=== PATIENT | female | born 1945 | race Caucasian/White ===

== ENCOUNTER 2018-10-22 11:03 | Observation (INO) ==
[2018-10-22] MEDS ORDERED: NORMODYNE INJ 20 MG VIAL IVP ONE (11:22)
[2018-10-22 11:29] LABS: BASOPHILS # (AUTO) 0.1 X10^3/uL (0.0-0.1); BASOPHILS % (AUTO) 1.2 % (0.2-1.0); EOSINOPHILS # (AUTO) 0.1 x10^3/uL (0.0-0.2); EOSINOPHILS % (AUTO) 2.5 % (0.9-2.9); HEMATOCRIT 39.3 % (36.0-47.0); HEMOGLOBIN 13.4 g/dL (12.0-16.0); LYMPHOCYTES # (AUTO) 1.4 X10^3/uL (1.3-2.9); LYMPHOCYTES % (AUTO) 22.9 % (21.0-51.0); MEAN CORPUSCULAR HEMOGLOBIN 31.7 pg (27.0-34.0); MEAN CORPUSCULAR HGB CONC 34.2 g/dL (33.0-35.0); MEAN CORPUSCULAR VOLUME 92.8 fL (80.0-100.0); MEAN PLATELET VOLUME 6.6 fL (7.4-11.0); MONOCYTES # (AUTO) 0.6 x10^3/uL (0.3-0.8); MONOCYTES % (AUTO) 9.9 % (0.0-13.0); NEUTROPHILS # (AUTO) 3.8 x10^3/uL (2.2-4.8); NEUTROPHILS % (AUTO) 63.5 % (42.0-75.0); PLATELET COUNT 281 X10^3/uL (150.0-450.0); RED BLOOD COUNT 4.23 X10^6/uL (3.5-5.4); RED CELL DISTRIBUTION WIDTH 14.9 % (11.6-16.5); WHITE BLOOD COUNT 5.9 X10^3/uL (3.6-10.0)
--- NOTE | 2018-10-22 12:04 | DR.GENAD ---
HPI Time Seen Time Seen by Provider: 10/22/18 11:18 PCP Primary Care Physician: URSULA HPI Comment HPI Comment: PATIENT IS 72YR OLD WHITE FEMALE WITH HISTORY OF HYPERTENSION, COPD AND ARTHRTIS IS IN THE EMERGENCY ROOM WITH AMS, DIZZINESS, HEADACHE AND SLURRED SPEECH. HER DAUGHTER SAID SHE CONFUSED WHEN SHE SAW HER THIS MORNING AND HER SPEECH SLURRED. PATIENT TOOK HER MEDICATIONS THIS AM INCLUDING HER MEDICATION FOR HYPERTENSION. Complaint/Symptoms Chief Complaint Doctors Comments: AMS, HEADACHE, DIZZINESS AND SLURRED SPEECH THIS AM. Chief Complaint:: PT. C/O HEADACHE, DIZZINESS AND HIGH BLOOD PRESSURE. Source History Provided: Patient and Family Member Mode of Arrival Mode of Arrival: Wheelchair Timing Onset of Chief Complaint: 10/22/18 PMH PMH Past Medical History: Yes Past Medical History: Arthritis, COPD and Hypertension Past Surgical History: No Surgical History: No History Family History History of Family Medical Conditions: Yes Family Medical History: Hypertension Social History Does patient currently use any type of tobacco product: Yes Have you used tobacco products in the last 12 months: Yes Type of Tobacco Use: Cigarettes Does any household member use tobacco: No Alcohol Use: None Do you use any recreational Drugs:: No Lives With: Alone Lives Where: Home infectious screening In the last 2 months have you had wt loss of >10#?: NO Have you had fever, night sweats or hemotysis?: No Have you traveled outside the country in the last 6 months?: No Isolation: Standard PE Vital Signs Vitals: Temperature 97.4 F Pulse Rate [Apical] 83 Pulse Rate 72 Respiratory Rate 20 Blood Pressure [Left Arm] 165/80 Blood Pressure 217/106 O2 Sat by Pulse Oximetry 98 ROR Labs Reviewed Result Diagrams: 10/22/18 11:14 10/22/18 11:14 Laboratory: WBC 5.9 X10^3/uL (3.6-10.0) 10/22/18 11:14 RBC 4.23 X10^6/uL (3.5-5.4) 10/22/18 11:14 Hgb 13.4 g/dL (12.0-16.0) 10/22/18 11:14 Hct 39.3 % (36.0-47.0) 10/22/18 11:14 MCV 92.8 fL (80.0-100.0) 10/22/18 11:14 MCH 31.7 pg (27.0-34.0) 10/22/18 11:14 MCHC 34.2 g/dL (33.0-35.0) 10/22/18 11:14 RDW 14.9 % (11.6-16.5) 10/22/18 11:14 Plt Count 281 X10^3/uL (150.0-450.0) 10/22/18 11:14 MPV 6.6 fL (7.4-11.0) L 10/22/18 11:14 Neut % (Auto) 63.5 % (42.0-75.0) 10/22/18 11:14 Lymph % (Auto) 22.9 % (21.0-51.0) 10/22/18 11:14 [place] % (Auto) 9.9 % (0.0-13.0) 10/22/18 11:14 Eos % (Auto) 2.5 % (0.9-2.9) 10/22/18 11:14 Baso % (Auto) 1.2 % (0.2-1.0) H 10/22/18 11:14 Neut # (Auto) 3.8 x10^3/uL (2.2-4.8) 10/22/18 11:14 Lymph # (Auto) 1.4 X10^3/uL (1.3-2.9) 10/22/18 11:14 [place] # (Auto) 0.6 x10^3/uL (0.3-0.8) 10/22/18 11:14 Eos # (Auto) 0.1 x10^3/uL (0.0-0.2) 10/22/18 11:14 Baso # (Auto) 0.1 X10^3/uL (0.0-0.1) 10/22/18 11:14 Absolute Nucleated RBC 0.1 /100WBC 10/22/18 11:14 Sodium 139 mmol/L (136-145) 10/22/18 11:14 Corrected Sodium 140 mmol/L (136-145) 10/22/18 11:14 Potassium 2.9 mmol/L (3.5-5.1) L* 10/22/18 11:14 Chloride 98 mmol/L (98-107) 10/22/18 11:14 Carbon Dioxide 33.8 mmol/L (21-32) H 10/22/18 11:14 BUN 15 mg/dL (7-18) 10/22/18 11:14 Creatinine 1.12 mg/dL (0.55-1.02) H 10/22/18 11:14 Est GFR (MDRD) Af Amer > 60 (>60) 10/22/18 11:14 Est GFR (MDRD) Non-Af 51 (>60) L 10/22/18 11:14 Glucose 129 mg/dL (65-99) H 10/22/18 11:14 Calcium 9.6 mg/dL (8.5-10.1) 10/22/18 11:14 Corrected Calcium TNP 10/22/18 11:14 Total Bilirubin 0.60 mg/dL (0.2-1.0) 10/22/18 11:14 AST 25 Units/L (15-37) 10/22/18 11:14 ALT 24 Units/L (12-78) 10/22/18 11:14 Alkaline Phosphatase 57 Units/L (46-116) 10/22/18 11:14 Creatine Kinase 142 Units/L (26-192) 10/22/18 11:14 CK-MB (CK-2) 9.6 ng/mL (0-4.0) H* 10/22/18 11:14 CK/CKMB % Calc 6.8 % (<4) 10/22/18 11:14 Troponin I < 0.02 ng/mL (0-1.5) 10/22/18 11:14 Total Protein 7.8 g/dL (6.4-8.2) 10/22/18 11:14 Albumin 3.8 g/dL (3.4-5.0) 10/22/18 11:14 Globulin 4.0 g/dL (2.5-4.5) 10/22/18 11:14 Albumin/Globulin Ratio 1.0 Ratio (1.1-2.1) L 10/22/18 11:14 Specimen Type Clean catch urine 10/22/18 12:22 Urine Color Yellow (YELLOW) 10/22/18 12:22 Urine Appearance Clear (CLEAR) 10/22/18 12:22 Urine pH 8.0 (5.0 - 8.0) 10/22/18 12:22 Ur Specific [place] 1.010 (1.000-1.030) 10/22/18 12:22 Urine Protein Negative (NEGATIVE) 10/22/18 12:22 Urine Glucose (UA) Negative (NEGATIVE) 10/22/18 12:22 Urine Ketones Negative (NEGATIVE) 10/22/18 12:22 Urine Occult Blood Negative (NEGATIVE) 10/22/18 12:22 Urine Nitrite Negative (NEGATIVE) 10/22/18 12:22 Urine Bilirubin Negative (NEGATIVE) 10/22/18 12:22 Urine Urobilinogen Normal (NORMAL) 10/22/18 12:22 Ur Leukocyte Esterase Negative (NEGATIVE) 10/22/18 12:22 Urine RBC Not Reportable 10/22/18 12:22 Urine WBC Not Reportable 10/22/18 12:22 Ur Squamous Epith Cells Not Reportable 10/22/18 12:22 Urine Bacteria Not Reportable 10/22/18 12:22 Ur Culture Indicated? No/not indicated 10/22/18 12:22 Opioid Opioid Risk Tool Total: 0 Total Score Risk Category: Low Risk Copyright: Satish ESTEVEZ predicting aberrant behaviors
[2018-10-22 12:06] LABS: ALANINE AMINOTRANSFERASE 24 Units/L (12-78); ALBUMIN 3.8 g/dL (3.4-5.0); ALKALINE PHOSPHATASE 57 Units/L (46-116); ASPARTATE AMINO TRANSFERASE 25 Units/L (15-37); BLOOD UREA NITROGEN 15 mg/dL (7-18); CALCIUM 9.6 mg/dL (8.5-10.1); CARBON DIOXIDE 33.8 mmol/L (21-32); CHLORIDE 98 mmol/L (98-107); CKMB % 6.8 % (<4); COR NA(FOR HYPERGLY) 140 mmol/L (136-145); CREATINE KINASE 142 Units/L (26-192); CREATININE 1.12 mg/dL (0.55-1.02); SODIUM 139 mmol/L (136-145); TOTAL PROTEIN 7.8 g/dL (6.4-8.2); TROPONIN I < 0.02 ng/mL (0-1.5); eGFR NON BLACK RACES 51 (>60)
[2018-10-22 12:10] LABS: CREATINE KINASE MB 9.6 ng/mL (0-4.0)
[2018-10-22] MEDS ORDERED: K-LYTE EFFERVESCENT PO ONE (12:18)
--- NOTE | 2018-10-22 12:21 | RAD ---
HISTORY: Headache, dizziness, high blood pressure. Prior history of hypertension and COPD. Study: Single-view chest Comparison: No priors Findings: Trachea is midline. Heart size is normal. There is atherosclerotic calcification and mild uncoiling of the aortic arch. There is hyperinflation of the lungs with increased interstitial markings bilaterally. There is some scarring present involving the right lung base. No dense consolidation, CHF, pleural fluid or pneumothorax is seen. There is multilevel thoracic spondylosis. IMPRESSION: COPD and scarring. No acute cardiopulmonary disease. Reported By:
--- NOTE | 2018-10-22 12:27 | CT ---
CT HEAD WITHOUT CONTRAST CLINICAL HISTORY: 72-year-old female with headache, dizziness. COMPARISON: None. TECHNIQUE: Multiple, non-contrasted axial CT images were obtained from the skull base to the cranial vertex. Coronal and sagittal reformats were performed. Dose reduction techniques including Automated Exposure Control (AEC) and adjustment of mA and kV were utilized. FINDINGS: There are no abnormal intra- or extra-axial fluid collections, midline shift, or mass effect. Aguirre-white differentiation is normal. Global cortical involutional changes are present that are advanced for the patient's stated age. The ventricular system is mildly enlarged but commensurate with the degree of sulcal prominence. Chronic lacunar infarctions bilateral basal ganglia. Periventricular and supraventricular white matter hypodensity is present that is nonspecific in appearance, but most likely to represent microvascular ischemic changes. Atherosclerotic vascular calcification is present within the carotid siphons and distal vertebral arteries. Mucosal thickening with central inspissated secretions of the imaged left maxillary sinus with the remaining imaged paranasal sinuses, mastoid air cells and tympanic cavities clear. IMPRESSION: 1. No definite evidence of an acute intracranial process. If clinical concern persists for acute stroke and it would alter patient management, consider MRI/MRA brain. 2. Chronic lacunar infarctions bilateral basal ganglia. 3. Moderate microvascular white matter ischemic changes, with associated volume loss. 4. Chronic left maxillary sinusitis. Reported By:
[2018-10-22] MEDS ORDERED: K-LYTE EFFERVESCENT ONE (12:42)
[2018-10-22 12:50] LABS: BILIRUBIN,URINE NEGATIVE (NEGATIVE); BLOOD/HEMOGLOBIN,URINE NEGATIVE (NEGATIVE); GLUCOSE, URINE NEGATIVE (NEGATIVE); KETONES,URINE NEGATIVE (NEGATIVE); LEUKOCYTE ESTERASE ,URINE NEGATIVE (NEGATIVE); NITRITES,URINE NEGATIVE (NEGATIVE); PROTEIN,URINE NEGATIVE (NEGATIVE); UROBILINOGEN,URINE NORMAL (NORMAL)
[2018-10-22 12:52] LABS: APPEARANCE,URINE CLEAR (CLEAR); COLOR,URINE YELLOW (YELLOW)
[2018-10-22] MEDS ORDERED: CATAPRES TAB 0.2 MG PO ONE (12:53)
[2018-10-22] MEDS ORDERED: TORADOL 30 MG VIAL IVP ONE (12:53)
[2018-10-22] MEDS ORDERED: TORADOL 15 MG VIAL ONE (13:02)
[2018-10-22] MEDS ORDERED: CATAPRES TAB 0.2 MG ONE (13:02)
[2018-10-22 16:47] VITALS: BMI 12.4
[2018-10-22] MEDS: NS 1000 ML 1,000 ML IV SCH (17:40)
[2018-10-22 17:48] LABS: CKMB % 4.4 % (<4); CREATINE KINASE 147 Units/L (26-192); TROPONIN I < 0.02 ng/mL (0-1.5)
[2018-10-22 17:50] LABS: CREATINE KINASE MB 6.5 ng/mL (0-4.0)
[2018-10-22] MEDS: DUONEB 0.5 MG/3 MG NEB SCH ×2 (17:50→20:06)
[2018-10-22 18:08] LABS: MAGNESIUM 1.9 mg/dL (1.7-2.9)
[2018-10-22] MEDS: NORCO 5/325 MG TAB PO PRN (19:11)
[2018-10-22] MEDS: ROCEPHIN VIAL 1 GRAM IVP SCH (19:11)
[2018-10-22] MEDS: BROVANA IN SCH (20:01)
[2018-10-22] MEDS: PULMICORT NEB TX 0.5 MG NEB SCH (20:06)
[2018-10-22] MEDS: MILK OF MAGNESIA PO SCH (20:36)
[2018-10-22] MEDS: BUSPAR PO SCH (20:36)
[2018-10-22] MEDS: MONOKET or IMDUR PO SCH (20:38)
[2018-10-22] MEDS: ELAVIL PO SCH (20:38)
[2018-10-22] MEDS: COLACE CAP 100 MG PO SCH (20:38)
[2018-10-22] MEDS ORDERED: BROVANA IN SCH (21:00)
[2018-10-22] MEDS: XANAX PO PRN (22:02)
[2018-10-22 23:11] LABS: ABG BASE EXCESS 14.9 mmol/L (-2.0-2.0)
[2018-10-22 23:13] LABS: ABG ALLEN TEST POS; ABG HCO3 38.5 mmol/L (22-26)
[2018-10-22 23:54] LABS: CKMB % 4.9 % (<4); CREATINE KINASE 87 Units/L (26-192); TROPONIN I < 0.02 ng/mL (0-1.5)
[2018-10-22 23:56] LABS: CREATINE KINASE MB 4.3 ng/mL (0-4.0)
[2018-10-23] MEDS: NORCO 5/325 MG TAB PO PRN ×4 (02:04→19:50)
[2018-10-23] MEDS: NS 1000 ML 1,000 ML IV SCH ×2 (05:32→20:44)
[2018-10-23 06:20] LABS: BASOPHILS % (AUTO) 0.8 % (0.2-1.0); EOSINOPHILS # (AUTO) 0.1 x10^3/uL (0.0-0.2); EOSINOPHILS % (AUTO) 2.3 % (0.9-2.9); HEMATOCRIT 33.5 % (36.0-47.0); HEMOGLOBIN 11.4 g/dL (12.0-16.0); LYMPHOCYTES # (AUTO) 2.4 X10^3/uL (1.3-2.9); LYMPHOCYTES % (AUTO) 41.8 % (21.0-51.0); MEAN CORPUSCULAR HEMOGLOBIN 31.4 pg (27.0-34.0); MEAN CORPUSCULAR HGB CONC 34.2 g/dL (33.0-35.0); MEAN CORPUSCULAR VOLUME 91.8 fL (80.0-100.0); MEAN PLATELET VOLUME 6.7 fL (7.4-11.0); MONOCYTES # (AUTO) 0.6 x10^3/uL (0.3-0.8); MONOCYTES % (AUTO) 11.2 % (0.0-13.0); NEUTROPHILS # (AUTO) 2.5 x10^3/uL (2.2-4.8); NEUTROPHILS % (AUTO) 43.9 % (42.0-75.0); PLATELET COUNT 234 X10^3/uL (150.0-450.0); RED BLOOD COUNT 3.64 X10^6/uL (3.5-5.4); RED CELL DISTRIBUTION WIDTH 15.1 % (11.6-16.5); WHITE BLOOD COUNT 5.7 X10^3/uL (3.6-10.0)
[2018-10-23 06:38] LABS: ALANINE AMINOTRANSFERASE 17 Units/L (12-78); ALBUMIN 2.7 g/dL (3.4-5.0); ALKALINE PHOSPHATASE 39 Units/L (46-116); ASPARTATE AMINO TRANSFERASE 18 Units/L (15-37); BLOOD UREA NITROGEN 14 mg/dL (7-18); CALCIUM 8.3 mg/dL (8.5-10.1); CARBON DIOXIDE 32.8 mmol/L (21-32); CHLORIDE 101 mmol/L (98-107); CHOL/HDL RATIO 2.6 (0.0-5.0); CHOLESTEROL 257 mg/dL (0-200); COR CA(FOR HYPOALB) 9.3 mg/dL (8.5-10.1); CREATININE 0.95 mg/dL (0.55-1.02); HDL CHOLESTEROL 98 mg/dL (40-60); MAGNESIUM 2.6 mg/dL (1.7-2.9); SODIUM 139 mmol/L (136-145); TOTAL PROTEIN 5.9 g/dL (6.4-8.2); TRIGLYCERIDES 56 mg/dL (0-150); eGFR NON BLACK RACES > 60 (>60)
[2018-10-23] MEDS: PEPCID TAB 20 MG PO SCH (08:25)
[2018-10-23] MEDS: ROCEPHIN VIAL 1 GRAM IVP SCH (08:25)
[2018-10-23] MEDS: BUSPAR PO SCH ×2 (08:25→20:42)
[2018-10-23] MEDS: MONOKET or IMDUR PO SCH ×2 (08:25→20:42)
[2018-10-23] MEDS: TENORMIN PO SCH (08:25)
[2018-10-23] MEDS: PREDNISONE TAB 5 MG PO SCH (08:26)
[2018-10-23] MEDS: BROVANA IN SCH ×2 (08:26→20:14)
[2018-10-23] MEDS ORDERED: K-DUR TAB 20 MEQ ONE (08:27)
[2018-10-23] MEDS: DUONEB 0.5 MG/3 MG NEB SCH ×4 (08:33→20:18)
[2018-10-23] MEDS: PULMICORT NEB TX 0.5 MG NEB SCH ×2 (08:33→20:19)
[2018-10-23] MEDS ORDERED: LASIX PO SCH (09:00)
[2018-10-23] MEDS ORDERED: COZAAR PO SCH (09:00)
[2018-10-23] MEDS ORDERED: NICOTINE PATCH ONE (09:23)
--- NOTE | 2018-10-23 09:43 | VAS ---
HISTORY: Headache, dizziness, high blood pressure. AMS, confusion Study: Bilateral carotid Doppler ultrasound Comparison: No priors Technique: Grayscale, color and duplex Doppler ultrasound evaluation of the cervical carotid arteries are provided. Findings: Carotid and vertebral arteries flow cephalad bilaterally. Is diffuse atherosclerotic thickening present involving the carotid arteries bilaterally. Peak systolic arterial velocity in the right ICA is 89.3 centimeters/second with an ICA/CCA ratio of 1.35. Peak systolic arterial velocity in the left ICA is 98.1 centimeters/second, with a ICA/CCA ratio of 1.29. IMPRESSION: No hemodynamically significant stenosis is seen. Reported By:
[2018-10-23] MEDS: XANAX PO PRN ×2 (11:07→20:44)
--- NOTE | 2018-10-23 15:38 | DR.H&P ---
H&P - History & Physical for Day of: H&P Date: 10/22/18 - Chief Complaint Chief Complaint: CH, IMPAIRED SPEECH, ELEVATED BLOOD SUGAR - History of Present Illness History of Present Illness: 72YR OLD WHITE FEMALE WITH HISTORY OF HYPERTENSION, COPD AND ARTHRTIS IS IN THE EMERGENCY ROOM WITH AMS, DIZZINESS, HEADACHE AND SLURRED SPEECH. HER DAUGHTER SAID SHE CONFUSED WHEN SHE SAW HER THIS MORNING AND HER SPEECH SLURRED. PATIENT TOOK HER MEDICATIONS THIS AM INCLUDING HER MEDICATION FOR HYPERTENSION. PT HAD PMH OF RA, TITO, HTN, COPD. PT HAD CT HEAD IN ER WITHOUT ACUTE FINDINGS. PT ADMITTED FOR EVALUATION AND TREATMENT OF ACUTE ILLNESS - Past Medical History Past Medical History: Hypertension, COPD, Arthritis - Past Surgical History Surgical History: No History - Family History Family Medical History: Coronary Artery Disease, Heart Failure - Social History Does patient currently use any type of tobacco product: Yes Have you used tobacco products in the last 12 months: Yes Type of Tobacco Use: Cigarettes How many years tobacco product used: 40 Does any household member use tobacco: No Alcohol Use: None Drug Use: None, Prescription Drugs - Medications Home Medications: No Known Drug Allergies Allergy (Verified 10/22/18 11:08) CONTINUE taking the following medications albuterol sulfate [Ventolin HFA] 90 mcg INHALATION BID 10/22/18 [History] alprazolam 0.25 - 0.5 mg PO BID PRN 10/22/18 [History] amitriptyline 50 mg PO HS 10/22/18 [History] arformoterol [Brovana] 1 amp INHALATION BID 10/22/18 [History] atenolol 50 mg PO DAILY 10/22/18 [History] buspirone 15 mg PO BID 10/22/18 [History] famotidine 40 mg PO DAILY 10/22/18 [History] furosemide 40 mg PO DAILY 10/22/18 [History] hydrocodone-acetaminophen 1 tab PO Q6H PRN 10/22/18 [History] ipratropium-albuterol 3 ml INHALATION QID 10/22/18 [History] isosorbide mononitrate 20 mg PO BID 10/22/18 [History] losartan 50 mg PO DAILY 10/22/18 [History] prednisone 7.5 mg PO DAILY 10/22/18 [History] - Review of Systems Constitutional: Weakness Eyes: No Symptoms Reported ENT: No Symptoms Reported Respiratory: Shortness of Breath Cardiovascular: No Symptoms Reported Gastrointestinal: No Symptoms Reported Genitourinary: No Symptoms Reported Musculoskeletal: Shoulder Pain, Back Pain, Hand Pain, Foot Pain Skin: No Symptoms Reported Neurological: Weakness, Other (INTRACTABLE CH) - Physical Exam Vital Signs: Temperature 98.1 F Pulse Rate [Apical] 83 Pulse Rate 67 Respiratory Rate 14 Blood Pressure [Left Arm] 165/80 Blood Pressure 125/65 O2 Sat by Pulse Oximetry 100 Oriented: Normal Eyes: Normal Ear: Normal Nose: Normal Throat: Dry Respiratory: RLL Diminished, LLL Diminished Cardiovascular: Normal. negative: Edema : Normal Auscultation: Bowel Sounds: Normal Palpation: Normal Tenderness: Normal Skin: Decreased Turgur Musculoskeletal: Right, Left, Knee, Back:Thoracic, Back:Lumbar Psychiatric: Anxiety Affect: Anxious Speech Pattern: Clear, Appropriate, Delayed - Assessment/Plan (1) TIA (transient ischemic attack) Status: Acute Plan: ADMIT ICU. CT HEAD ON ADMISSION, MRI BRAIN Q AM. CAROTID US, BP AND LIPID CONTROL. ASPIRIN THERAPY, PAIN CONTROL. VERIFY HOME MEDICATION, EKG MONITORING. ECHO (2) Intractable headache Status: Acute (3) Malignant hypertension Status: Acute (4) Rheumatoid arthritis Status: Acute (5) COPD (chronic obstructive pulmonary disease) Status: Acute - Allergies Allergies/Adverse Reactions: Allergies Allergy/AdvReac Type Severity Reaction Status Date / Time No Known Drug Allergies Allergy Verified 10/22/18 11:08
--- NOTE | 2018-10-23 15:48 | PCM.PROG ---
Progress Note - Progress Note for Day of Date of Exam: 10/23/18 - Subjective Subjective: 72 WF ER ADMISSION ON 10/[address] HEAD ON ADMISSION WITH CHRONIC FINDINGS. MRI BRAIN ORDERED FOR THIS AM. PT HAD CAROTID ARTERY US AND ECHO WITHOUT SIGNIFICANT STENOSIS OR DECREASED BASELINE EF. PT CONTINUES WITH CO MILD WEAKNESS, GENERALIZED. DEHYDRATION ON ADMISSION. FAMILY REPORTS PT HAS HAD WEIGHT LOSS AND BP UNCONTROLLED FOR PAIN 2-3 WEEKS. D/C LOSARTAN AND STARTED ON LISINOPRIL BID. WILL CONTINUE BP MONITORING AND NEURO CHECKS, I & OS, SUPPLEMENTAL O2 - Past Medical Family Social History Past Med/Fam/Surg Hx: No changes since H&P Allergies: Allergies No Known Drug Allergies Allergy (Verified 10/22/18 11:08) - Review of Systems ROS: No change since H&P - Vital Signs and I&O's Vital Signs: Temperature 98.1 F Pulse Rate [Apical] 83 Pulse Rate 67 Respiratory Rate 14 Blood Pressure [Left Arm] 165/80 Blood Pressure 125/65 O2 Sat by Pulse Oximetry 100 Intake and Output: Intake & Output 10/21/18 10/22/18 10/23/18 10/24/18 11:59 11:59 11:59 11:59 Intake Total 1078 / 1078 615 / 615 Output Total 400 / 400 2900 / 2900 Balance 678 / 678 -2285 / -2285 - Physical Exam Oriented: Normal Eyes: Normal Ear: Normal Nose: Normal Throat: Dry Respiratory: Diminished Cardiovascular: Normal. negative: Edema : Normal Auscultation: Bowel Sounds: Normal Tenderness: Normal Skin: Decreased Turgur Musculoskeletal: Right, Left, Knee, Back:Thoracic, Back:Lumbar Psychiatric: Anxiety Mood Description: Calm Affect: Anxious Speech Pattern: Clear, Appropriate, Delayed - Laboratory and Diagnostics Result Diagrams: 10/23/18 05:06 10/23/18 05:06 Labs: Laboratory WBC 5.7 X10^3/uL (3.6-10.0) 10/23/18 05:06 RBC 3.64 X10^6/uL (3.5-5.4) 10/23/18 05:06 Hgb 11.4 g/dL (12.0-16.0) L D 10/23/18 05:06 Hct 33.5 % (36.0-47.0) L 10/23/18 05:06 MCV 91.8 fL (80.0-100.0) 10/23/18 05:06 MCH 31.4 pg (27.0-34.0) 10/23/18 05:06 MCHC 34.2 g/dL (33.0-35.0) 10/23/18 05:06 RDW 15.1 % (11.6-16.5) 10/23/18 05:06 Plt Count 234 X10^3/uL (150.0-450.0) 10/23/18 05:06 MPV 6.7 fL (7.4-11.0) L 10/23/18 05:06 Neut % (Auto) 43.9 % (42.0-75.0) 10/23/18 05:06 Lymph % (Auto) 41.8 % (21.0-51.0) 10/23/18 05:06 [place] % (Auto) 11.2 % (0.0-13.0) 10/23/18 05:06 Eos % (Auto) 2.3 % (0.9-2.9) 10/23/18 05:06 Baso % (Auto) 0.8 % (0.2-1.0) 10/23/18 05:06 Neut # (Auto) 2.5 x10^3/uL (2.2-4.8) 10/23/18 05:06 Lymph # (Auto) 2.4 X10^3/uL (1.3-2.9) 10/23/18 05:06 [place] # (Auto) 0.6 x10^3/uL (0.3-0.8) 10/23/18 05:06 Eos # (Auto) 0.1 x10^3/uL (0.0-0.2) 10/23/18 05:06 Baso # (Auto) 0.0 X10^3/uL (0.0-0.1) 10/23/18 05:06 Absolute Nucleated RBC 0.1 /100WBC 10/23/18 05:06 INR Target Range - 10/23/18 05:06 INR 0.99 (0.8-1.3) 10/23/18 05:06 APTT 23.9 SECONDS (22.9-36.5) 10/23/18 05:06 PTT Comment - 10/23/18 05:06 Sample Site Lra 10/22/18 23:05 ABG pH 7.570 (7.35-7.45) H* 10/22/18 23:05 ABG pCO2 42.0 mmHg (35.0-45.0) 10/22/18 23:05 ABG pO2 90.0 mmHg (80.0-100.0) 10/22/18 23:05 ABG HCO3 38.5 mmol/L (22-26) H* 10/22/18 23:05 ABG O2 Saturation 98.0 % (90-100) 10/22/18 23:05 ABG Base Excess 14.9 mmol/L (-2.0-2.0) H 10/22/18 23:05 Jarred Test Pos 10/22/18 23:05 A-a Gradient 7.0 mmHg 10/22/18 23:05 FiO2 21.0 10/22/18 23:05 Blood Gas Comments Pt toll well eb 10/22/18 23:05 Sodium 139 mmol/L (136-145) 10/23/18 05:06 Corrected Sodium TNP 10/23/18 05:06 Potassium 3.4 mmol/L (3.5-5.1) L 10/23/18 05:06 Chloride 101 mmol/L (98-107) 10/23/18 05:06 Carbon Dioxide 32.8 mmol/L (21-32) H 10/23/18 05:06 BUN 14 mg/dL (7-18) 10/23/18 05:06 Creatinine 0.95 mg/dL (0.55-1.02) 10/23/18 05:06 Est GFR (MDRD) Af Amer > 60 (>60) 10/23/18 05:06 Est GFR (MDRD) Non-Af > 60 (>60) 10/23/18 05:06 Glucose 85 mg/dL (65-99) 10/23/18 05:06 Calcium 8.3 mg/dL (8.5-10.1) L 10/23/18 05:06 Corrected Calcium 9.3 mg/dL (8.5-10.1) 10/23/18 05:06 Magnesium 2.6 mg/dL (1.7-2.9) 10/23/18 05:06 Total Bilirubin 0.50 mg/dL (0.2-1.0) 10/23/18 05:06 AST 18 Units/L (15-37) 10/23/18 05:06 ALT 17 Units/L (12-78) 10/23/18 05:06 Alkaline Phosphatase 39 Units/L (46-116) L 10/23/18 05:06 Creatine Kinase 87 Units/L (26-192) 10/22/18 23:00 CK-MB (CK-2) 4.3 ng/mL (0-4.0) H* 10/22/18 23:00 CK/CKMB % Calc 4.9 % (<4) 10/22/18 23:00 Troponin I < 0.02 ng/mL (0-1.5) 10/22/18 23:00 Total Protein 5.9 g/dL (6.4-8.2) L 10/23/18 05:06 Albumin 2.7 g/dL (3.4-5.0) L 10/23/18 05:06 Globulin 3.2 g/dL (2.5-4.5) 10/23/18 05:06 Albumin/Globulin Ratio 0.8 Ratio (1.1-2.1) L 10/23/18 05:06 Triglycerides 56 mg/dL (0-150) 10/23/18 05:06 Cholesterol 257 mg/dL (0-200) H 10/23/18 05:06 LDL Cholesterol, Calc 148 mg/dL (0-100) H 10/23/18 05:06 HDL Cholesterol 98 mg/dL (40-60) H 10/23/18 05:06 Cholesterol/HDL Ratio 2.6 (0.0-5.0) 10/23/18 05:06 Specimen Type Clean catch urine 10/22/18 12:22 Urine Color Yellow (YELLOW) 10/22/18 12:22 Urine Appearance Clear (CLEAR) 10/22/18 12:22 Urine pH 8.0 (5.0 - 8.0) 10/22/18 12:22 Ur Specific [place] 1.010 (1.000-1.030) 10/22/18 12:22 Urine Protein Negative (NEGATIVE) 10/22/18 12:22 Urine Glucose (UA) Negative (NEGATIVE) 10/22/18 12:22 Urine Ketones Negative (NEGATIVE) 10/22/18 12:22 Urine Occult Blood Negative (NEGATIVE) 10/22/18 12:22 Urine Nitrite Negative (NEGATIVE) 10/22/18 12:22 Urine Bilirubin Negative (NEGATIVE) 10/22/18 12:22 Urine Urobilinogen Normal (NORMAL) 10/22/18 12:22 Ur Leukocyte Esterase Negative (NEGATIVE) 10/22/18 12:22 Urine RBC Not Reportable 10/22/18 12:22 Urine WBC Not Reportable 10/22/18 12:22 Ur Squamous Epith Cells Not Reportable 10/22/18 12:22 Urine Bacteria Not Reportable 10/22/18 12:22 Ur Culture Indicated? No/not indicated 10/22/18 12:22 - Plan (1) TIA (transient ischemic attack) Status: Acute Plan: ICU. CT HEAD ON ADMISSION, MRI BRAIN TODAY. CAROTID US, BP AND LIPID CONTROL. ASPIRIN THERAPY, PAIN CONTROL. VERIFY HOME MEDICATION, EKG MONITORING. ECHO, STRICT I &OS, SUPPLEMENTAL O2 (2) Intractable headache Status: Acute (3) Malignant hypertension Status: Acute (4) Rheumatoid arthritis Status: Acute (5) COPD (chronic obstructive pulmonary disease) Status: Acute
[2018-10-23] MEDS ORDERED: ZESTRIL TAB 10 MG ONE (17:17)
[2018-10-23] MEDS: ZESTRIL TAB 10 MG PO SCH ×2 (17:19→20:44)
--- NOTE | 2018-10-23 18:58 | MRI ---
MRI BRAIN WITHOUT CONTRAST CLINICAL HISTORY: 9-year-old female with altered mental status and hypertensive emergency. Dizziness with blurred vision and headache. COMPARISON: CT head 10/22/2018. TECHNIQUE: Multiplanar, multisequence MR images of the brain were obtained without contrast. FINDINGS: There is no evidence of diffusion restriction. The craniocervical junction is normal. Pituitary and optic nerve complex are normal. Scattered confluent and punctate T2 FLAIR signal hyperintensities are present within the subcortical, juxtacortical, periventricular and supraventricular white matter that are nonspecific in appearance but most likely to represent microvascular white matter ischemic changes. Normal signal characteristics and morphology are demonstrated within the cerebral cortex, corpus callosum, deep groves nuclei, brainstem and cerebellum. The major vascular flow voids, to include the dural venous sinuses, are intact. No abnormal susceptibility on gradient imaging. Age advanced cortical volume loss is present, with commensurate sulcal and ventricular prominence. The basilar cisterns are normal. The orbits and globes are within normal limits. Partial opacification left maxillary sinus with mucosal thickening with trace mucosal thickening of the ethmoid labyrinth. Remaining paranasal sinuses, mastoid air cells and tympanic cavities are clear. IMPRESSION: 1. No acute ischemic or hemorrhagic insult. 2. Moderate, chronic microvascular white matter ischemic disease with associated volume loss. 3. Chronic left maxillary sinusitis, correlate for acute component. Reported By:
[2018-10-23] MEDS: MILK OF MAGNESIA PO SCH (20:41)
[2018-10-23] MEDS: ELAVIL PO SCH (20:42)
[2018-10-23] MEDS: COLACE CAP 100 MG PO SCH (20:43)
[2018-10-24 06:34] LABS: BASOPHILS % (AUTO) 0.8 % (0.2-1.0); EOSINOPHILS # (AUTO) 0.1 x10^3/uL (0.0-0.2); EOSINOPHILS % (AUTO) 2.3 % (0.9-2.9); HEMATOCRIT 36.8 % (36.0-47.0); HEMOGLOBIN 12.4 g/dL (12.0-16.0); LYMPHOCYTES # (AUTO) 1.9 X10^3/uL (1.3-2.9); LYMPHOCYTES % (AUTO) 32.1 % (21.0-51.0); MEAN CORPUSCULAR HEMOGLOBIN 31.5 pg (27.0-34.0); MEAN CORPUSCULAR HGB CONC 33.8 g/dL (33.0-35.0); MEAN CORPUSCULAR VOLUME 93.3 fL (80.0-100.0); MONOCYTES # (AUTO) 0.7 x10^3/uL (0.3-0.8); MONOCYTES % (AUTO) 11.5 % (0.0-13.0); NEUTROPHILS # (AUTO) 3.2 x10^3/uL (2.2-4.8); NEUTROPHILS % (AUTO) 53.3 % (42.0-75.0); PLATELET COUNT 246 X10^3/uL (150.0-450.0); RED BLOOD COUNT 3.94 X10^6/uL (3.5-5.4); RED CELL DISTRIBUTION WIDTH 15.2 % (11.6-16.5)
[2018-10-24] MEDS: NS 1000 ML 1,000 ML IV SCH (06:52)
[2018-10-24 06:55] LABS: ALANINE AMINOTRANSFERASE 18 Units/L (12-78); ALKALINE PHOSPHATASE 44 Units/L (46-116); ASPARTATE AMINO TRANSFERASE 20 Units/L (15-37); BLOOD UREA NITROGEN 14 mg/dL (7-18); CARBON DIOXIDE 30.5 mmol/L (21-32); CHLORIDE 101 mmol/L (98-107); COR CA(FOR HYPOALB) 9.8 mg/dL (8.5-10.1); CREATININE 0.95 mg/dL (0.55-1.02); SODIUM 138 mmol/L (136-145); TOTAL PROTEIN 6.6 g/dL (6.4-8.2); eGFR NON BLACK RACES > 60 (>60)
[2018-10-24] MEDS: PULMICORT NEB TX 0.5 MG NEB SCH (08:32)
[2018-10-24] MEDS: DUONEB 0.5 MG/3 MG NEB SCH (08:32)
[2018-10-24] MEDS: BROVANA IN SCH (08:55)
[2018-10-24] MEDS ORDERED: TORADOL 15 MG VIAL IVP ONE (08:56)
[2018-10-24] MEDS: BUSPAR PO SCH (09:08)
[2018-10-24] MEDS: ROCEPHIN VIAL 1 GRAM IVP SCH (09:08)
[2018-10-24] MEDS: PREDNISONE TAB 5 MG PO SCH (09:08)
[2018-10-24] MEDS: MONOKET or IMDUR PO SCH (09:08)
[2018-10-24] MEDS: PEPCID TAB 20 MG PO SCH (09:09)
[2018-10-24] MEDS: ZESTRIL TAB 10 MG PO SCH (09:09)
[2018-10-24] MEDS: TENORMIN PO SCH (09:09)
[2018-10-24 11:40] VITALS: BP 142/67
== END 2018-10-24 12:47 | disposition home health service (06) ==
LOC: ICU 11:05 → ER 11:05 → ICU 14:28
PROVIDERS: ADMIT Internal Medicine; ATTEND Internal Medicine
DX: J44.9 Chronic obstructive pulmonary disease, unspecified; M06.9 Rheumatoid arthritis, unspecified; G45.9 Transient cerebral ischemic attack, unspecified; R51 Headache; F41.8 Other specified anxiety disorders; J32.0 Chronic maxillary sinusitis; I16.0 Hypertensive urgency; Z79.899 Other long term (current) drug therapy; R73.09 Other abnormal glucose; R94.31 Abnormal electrocardiogram [ECG] [EKG]; R41.82 Altered mental status, unspecified; R90.82 White matter disease, unspecified; I10 Essential (primary) hypertension
CPT/HCPCS: 36415; 36600; 70450; 70551; 71010; 71045; 80053; 80061; 81001; 81003; 82550; 82553; 82803; 83735; 84132; 84484; 85025; 85378; 85610; 85730; 93005; 93306; 93880; 94640; 94760; 96365; 96374; 96375; 99217; 99284; A4222; G0378; J0696; J1885; J7030; J7512; J7620; J7626; J8499

== ENCOUNTER 2021-07-09 12:08 | Inpatient (IN) ==
[2021-07-09 12:41] LABS: ABG BASE EXCESS 16.8 mmol/L (-2.0-2.0)
[2021-07-09 12:42] LABS: ABG ALLEN TEST POS; ABG HCO3 44.1 mmol/L (22-26)
[2021-07-09] MEDS: PULMICORT NEB TX 0.5 MG NEB SCH ×2 (12:50→20:25)
[2021-07-09] MEDS: NS 1/2 + KCL 20 MEQ/L 1,000 ML IV SCH (12:50)
[2021-07-09] MEDS ORDERED: PROVENTIL NEB TX 0.083% 2.5MG/ 3ML NEB PRN (12:57)
[2021-07-09] MEDS ORDERED: XOPENEX 1.25 MG/3 ML NEBULE NEB SCH (13:00)
[2021-07-09] MEDS: PROTONIX INJ 40 MG VIAL IVP SCH ×2 (13:00→20:35)
[2021-07-09] MEDS: SOLU-Medrol 40 MG VIAL IVP SCH ×2 (13:01→20:42)
[2021-07-09] MEDS: ROCEPHIN VIAL 1 GRAM 1 G in NS 100 ML IV 100 ML IV SCH (13:01)
[2021-07-09 13:08] LABS: HEMOGLOBIN 13.8 g/dL (12.0-16.0); MEAN CORPUSCULAR HEMOGLOBIN 30.4 pg (27.0-34.0); MEAN CORPUSCULAR HGB CONC 33.4 g/dL (33.0-35.0); MEAN PLATELET VOLUME 7.5 fL (7.4-11.0); RED BLOOD COUNT 4.53 X10^6/uL (3.5-5.4)
[2021-07-09 13:13] LABS: BASOPHILS % (AUTO) 0.2 % (0.2-1.0); HEMATOCRIT 41.2 % (36.0-47.0); LYMPHOCYTES # (AUTO) 0.5 X10^3/uL (1.3-2.9); LYMPHOCYTES % (AUTO) 3.9 % (21.0-51.0); MEAN CORPUSCULAR VOLUME 91.1 fL (80.0-100.0); MONOCYTES # (AUTO) 0.8 x10^3/uL (0.3-0.8); MONOCYTES % (AUTO) 6.5 % (0.0-13.0); NEUTROPHILS # (AUTO) 11.3 x10^3/uL (2.2-4.8); NEUTROPHILS % (AUTO) 89.4 % (42.0-75.0); RED CELL DISTRIBUTION WIDTH 14.1 % (11.6-16.5); WHITE BLOOD COUNT 12.6 X10^3/uL (3.6-10.0)
--- NOTE | 2021-07-09 13:17 | DR.H&P ---
H&P - History & Physical for Day of: H&P Date: 07/09/21 - Chief Complaint Chief Complaint: SOB, WEAKNESS - History of Present Illness History of Present Illness: PT IS 75 EF DIRECT ADMIT FROM DR VERGARA OFFICE WITH RESPIRATORY DISTRESS. PT CO SEVERE EXERTIONAL SOB ONSET LAST FRIDAY. PT WENT TO ER ON FRIDAY AND DC HOME ON PREDNISONE WITHOUT IMPROVEMENT. PT FAMILY REPORTS SHE HAS NOT STAYED ALONE SINCE FRIDAY, SHE HAD BEEN VERY ANXOUS, POOR PO INTAKE AND INCREASED WEAKNESS. PT HAS PMH OF COPD, ADVANCED RA, HTN, TITO, MDD. PT ADMITTED FOR TREATMENT OF ACUTE ILLNESS. - Past Medical History Past Medical History: Anxiety, Arthritis, COPD, GERD, Hypertension - Past Surgical History Surgical History: No History - Family History Family Medical History: Hypertension - Social History Does patient currently use any type of tobacco product: Yes Have you used tobacco products in the last 12 months: Yes Type of Tobacco Use: Cigarettes Alcohol Use: None Drug Use: None Risks, benefits, and alternatives of opioids discussed: Yes Prescription drug monitoring program results: PDMP reviewed and no concerns identified - Medications Home Medications: codeine Allergy (Intermediate, Verified 10/18/20 07:18) disorientation - Review of Systems Constitutional: Weakness, Malaise Eyes: No Symptoms Reported ENT: No Symptoms Reported Respiratory: Cough, Shortness of Breath, SOB with Excertion, Sputum Cardiovascular: Palpitations Gastrointestinal: Nausea Genitourinary: No Symptoms Reported Musculoskeletal: Shoulder Pain, Back Pain, Hand Pain, Foot Pain Skin: No Symptoms Reported Neurological: Weakness - Physical Exam Vital Signs: Temperature 97.8 F Pulse Rate 93 Respiratory Rate 40 Blood Pressure [Left Arm] 165/80 Blood Pressure 193/118 O2 Sat by Pulse Oximetry 99 Oriented: Normal Eyes: Normal Ear: Normal Nose: Normal Throat: Dry Respiratory: Diminished Throughout Cardiovascular: Tachycardia. negative: Edema : Normal Auscultation: Bowel Sounds: Normal Palpation: Normal Tenderness: Normal Skin: Decreased Turgur Musculoskeletal: Right, Left, Swelling (DIFFUSE SMALL JOINT SWELLING, HAND AND TOE CHRONIC DEFORMITY FOR RA), Tender, Deformity, Motor Deficit Psychiatric: Anxiety Speech Pattern: Clear, Appropriate, Delayed (DUE TO LABORED RESPIRATIONS) - Assessment/Plan (1) Respiratory distress Status: Acute Plan: ADMIT, SUPPLEMENTAL O2, IV ATBX. RESP THERAPY, CXR AND ADMISSION. ABG ON ADMISSION, CARDIAC MONITORING. IV HYDRATION, VERIFY HOME MEDICATION (2) Acute exacerbation of chronic obstructive pulmonary disease Status: Acute (3) Rheumatoid arthritis Status: Acute (4) Weakness Status: Acute - Allergies Allergies/Adverse Reactions: Allergies Allergy/AdvReac Type Severity Reaction Status Date / Time codeine Allergy Intermediate disorientat Verified 10/18/20 07:18 ion
--- NOTE | 2021-07-09 13:37 | RAD ---
HISTORYSOBSTUDYCHEST, 1 [id number] atous changes are present. The focal areas of abnormal opacity in the right lung base seen on the CT from 07/07/2021 are not well appreciated by radiography today. No consolidation or pleural effusion.Heart size is normal. Vascular calcifications are present compatible with atherosclerosis.Bones are unremarkable. [EKG leads are noted. ]IMPRESSION1. EmphysemaElectronically signed by: Gino Bah (Jul 09, 2021 13:37:03)
[2021-07-09 13:49] LABS: CKMB % 6.7 % (<4)
[2021-07-09 13:54] LABS: CREATINE KINASE MB 6.4 ng/mL (0-4.0)
[2021-07-09 13:55] LABS: BLOOD UREA NITROGEN 18 mg/dL (7-18); CARBON DIOXIDE 38.2 mmol/L (21-32); CHLORIDE 92 mmol/L (98-107); SODIUM 133 mmol/L (136-145)
[2021-07-09 13:56] LABS: ALANINE AMINOTRANSFERASE 29 Units/L (12-78); ALBUMIN 3.5 g/dL (3.4-5.0); ALKALINE PHOSPHATASE 92 Units/L (46-116); ASPARTATE AMINO TRANSFERASE 30 Units/L (15-37); CALCIUM 10.3 mg/dL (8.5-10.1); COR NA(FOR HYPERGLY) 134 mmol/L (136-145); CREATININE 0.83 mg/dL (0.55-1.02); MAGNESIUM 1.9 mg/dL (1.7-2.9); TOTAL PROTEIN 7.6 g/dL (6.4-8.2); eGFR NON BLACK RACES > 60 (>60)
[2021-07-09] MEDS: NORCO 5/325 MG TAB PO PRN (17:53)
[2021-07-09] MEDS: XOPENEX 1.25 MG/3 ML NEBULE NEB SCH (18:20)
[2021-07-09] MEDS: ZESTRIL TAB 10 MG PO SCH (18:35)
[2021-07-09 19:24] LABS: CKMB % 6.4 % (<4)
[2021-07-09 19:29] LABS: CREATINE KINASE MB 6.8 ng/mL (0-4.0)
[2021-07-09] MEDS: MILK OF MAGNESIA PO SCH (20:13)
[2021-07-09] MEDS: COLACE CAP 100 MG PO SCH (20:13)
[2021-07-09] MEDS: ELAVIL PO SCH (20:13)
[2021-07-09] MEDS: BUSPAR PO SCH (20:14)
[2021-07-09] MEDS: MONOKET or IMDUR PO SCH (20:14)
[2021-07-09] MEDS: BROVANA IN SCH (20:25)
[2021-07-09] MEDS: XANAX PO PRN (21:10)
[2021-07-10] MEDS: XOPENEX 1.25 MG/3 ML NEBULE NEB SCH ×4 (00:25→17:05)
[2021-07-10 01:27] LABS: CKMB % 8.2 % (<4)
[2021-07-10 01:28] LABS: CREATINE KINASE MB 6.6 ng/mL (0-4.0)
[2021-07-10] MEDS: NORCO 5/325 MG TAB PO PRN ×4 (04:51→21:01)
[2021-07-10] MEDS: TENORMIN PO SCH ×2 (05:03→09:11)
[2021-07-10 05:17] LABS: BASOPHILS % (AUTO) 0.2 % (0.2-1.0); HEMATOCRIT 38.2 % (36.0-47.0); HEMOGLOBIN 13.1 g/dL (12.0-16.0); LYMPHOCYTES # (AUTO) 0.5 X10^3/uL (1.3-2.9); LYMPHOCYTES % (AUTO) 5.2 % (21.0-51.0); MEAN CORPUSCULAR HEMOGLOBIN 31.2 pg (27.0-34.0); MEAN CORPUSCULAR HGB CONC 34.3 g/dL (33.0-35.0); MEAN PLATELET VOLUME 7.4 fL (7.4-11.0); MONOCYTES # (AUTO) 0.8 x10^3/uL (0.3-0.8); MONOCYTES % (AUTO) 7.6 % (0.0-13.0); NEUTROPHILS # (AUTO) 9.2 x10^3/uL (2.2-4.8); RED BLOOD COUNT 4.19 X10^6/uL (3.5-5.4); WHITE BLOOD COUNT 10.5 X10^3/uL (3.6-10.0)
[2021-07-10 05:21] LABS: ALANINE AMINOTRANSFERASE 25 Units/L (12-78); ALBUMIN 3.1 g/dL (3.4-5.0); ALKALINE PHOSPHATASE 81 Units/L (46-116); ASPARTATE AMINO TRANSFERASE 27 Units/L (15-37); BLOOD UREA NITROGEN 15 mg/dL (7-18); CALCIUM 10.1 mg/dL (8.5-10.1); CHLORIDE 92 mmol/L (98-107); COR CA(FOR HYPOALB) 10.8 mg/dL (8.5-10.1); COR NA(FOR HYPERGLY) 135 mmol/L (136-145); CREATININE 0.77 mg/dL (0.55-1.02); SODIUM 134 mmol/L (136-145); TOTAL PROTEIN 6.9 g/dL (6.4-8.2); eGFR NON BLACK RACES > 60 (>60)
[2021-07-10] MEDS: BROVANA IN SCH ×2 (08:32→20:50)
[2021-07-10] MEDS: PULMICORT NEB TX 0.5 MG NEB SCH ×2 (08:32→20:50)
[2021-07-10] MEDS: SOLU-Medrol 40 MG VIAL IVP SCH ×2 (09:09→21:00)
[2021-07-10] MEDS: ROCEPHIN VIAL 1 GRAM 1 G in NS 100 ML IV 100 ML IV SCH (09:09)
[2021-07-10] MEDS: PROTONIX INJ 40 MG VIAL IVP SCH ×2 (09:09→21:00)
[2021-07-10] MEDS: MILK OF MAGNESIA PO SCH ×2 (09:10→20:58)
[2021-07-10] MEDS: XANAX PO PRN ×3 (09:10→21:01)
[2021-07-10] MEDS: MONOKET or IMDUR PO SCH ×2 (09:10→21:16)
[2021-07-10] MEDS: ZESTRIL TAB 10 MG PO SCH ×2 (09:11→21:00)
[2021-07-10] MEDS: BUSPAR PO SCH ×2 (09:11→21:00)
[2021-07-10] MEDS: COLACE CAP 100 MG PO SCH ×2 (09:11→20:59)
[2021-07-10] MEDS: LOVENOX INJ 40 MG SYR SC SCH (09:13)
[2021-07-10 11:22] VITALS: BMI 14.0
[2021-07-10] MEDS: NS 1/2 + KCL 20 MEQ/L 1,000 ML IV SCH (14:43)
--- NOTE | 2021-07-10 16:39 | VAS ---
LOWER EXT VENOUS, BILATERALHISTORY: Positive D-dimerComparison:NoneTECHNIQUE: Multiple groves scale and color flow Doppler images of the deep venous system were obtained of the right and left lower extremity.FINDINGS:The deep venous system of the right and left lower extremities were evaluated from the level of the common femoral vein through the popliteal vein. Normal color flow and augmentation can be observed .In addition, normal compression is seen throughout the deep venous system.IMPRESSION:1.Negative for DVT.Electronically signed by: LUDWIN SELLERS (Jul 10, 2021 16:39:25)
[2021-07-10] MEDS ORDERED: APRESOLINE INJ 20 MG VIAL IVP ONE (17:18)
[2021-07-10] MEDS ORDERED: ELAVIL ONE (19:10)
[2021-07-10] MEDS ORDERED: ZESTRIL TAB 10 MG ONE (19:11)
--- NOTE | 2021-07-10 19:21 | VAS ---
Ultrasound bilateral upper extremity venous DopplerIndication: Positive D-dimer.TECHNIQUEDynamic grayscale and color Doppler imaging through the bilateral upper extremity veins compression techniques and spectral analysis where applicableFINDINGSThe bilateral internal jugular veins and subclavian veins are patent with normal respiratory phasicity.The bilateral axillary vein, brachial vein throughout their lengths, radial veins and ulnar veins show normal color and spectral Doppler flow. Compression imaging not demonstrated, reportedly was performed. Cephalic veins are patent bilaterally.Impression: No right or left upper extremity deep vein thrombosis convincingly demonstrated. However compression views are not demonstrated. If the patient has swelling or high concern for thrombus, repeat study with compression imaging provided is recommended.Electronically signed by: KAUSHIK WEBER (Jul 10, 2021 19:21:18)
[2021-07-10] MEDS: ELAVIL PO SCH (20:59)
[2021-07-11] MEDS: XOPENEX 1.25 MG/3 ML NEBULE NEB SCH ×4 (00:31→16:30)
[2021-07-11 03:53] LABS: BASOPHILS % (AUTO) 0.2 % (0.2-1.0); HEMATOCRIT 37.7 % (36.0-47.0); HEMOGLOBIN 12.3 g/dL (12.0-16.0); LYMPHOCYTES # (AUTO) 0.5 X10^3/uL (1.3-2.9); LYMPHOCYTES % (AUTO) 3.6 % (21.0-51.0); MEAN CORPUSCULAR HEMOGLOBIN 29.9 pg (27.0-34.0); MEAN CORPUSCULAR HGB CONC 32.6 g/dL (33.0-35.0); MEAN CORPUSCULAR VOLUME 91.7 fL (80.0-100.0); MEAN PLATELET VOLUME 7.5 fL (7.4-11.0); MONOCYTES % (AUTO) 6.7 % (0.0-13.0); NEUTROPHILS # (AUTO) 12.7 x10^3/uL (2.2-4.8); NEUTROPHILS % (AUTO) 89.5 % (42.0-75.0); RED BLOOD COUNT 4.11 X10^6/uL (3.5-5.4); RED CELL DISTRIBUTION WIDTH 14.3 % (11.6-16.5); WHITE BLOOD COUNT 14.2 X10^3/uL (3.6-10.0)
[2021-07-11 04:05] LABS: ALANINE AMINOTRANSFERASE 22 Units/L (12-78); ALBUMIN 2.8 g/dL (3.4-5.0); ALKALINE PHOSPHATASE 74 Units/L (46-116); ASPARTATE AMINO TRANSFERASE 21 Units/L (15-37); BLOOD UREA NITROGEN 18 mg/dL (7-18); CALCIUM 9.6 mg/dL (8.5-10.1); CARBON DIOXIDE 38.3 mmol/L (21-32); CHLORIDE 94 mmol/L (98-107); COR CA(FOR HYPOALB) 10.6 mg/dL (8.5-10.1); COR NA(FOR HYPERGLY) 134 mmol/L (136-145); CREATININE 0.76 mg/dL (0.55-1.02); SODIUM 133 mmol/L (136-145); TOTAL PROTEIN 6.4 g/dL (6.4-8.2); eGFR NON BLACK RACES > 60 (>60)
[2021-07-11] MEDS: NORCO 5/325 MG TAB PO PRN ×3 (04:47→20:47)
[2021-07-11] MEDS: PROTONIX INJ 40 MG VIAL IVP SCH ×2 (08:14→20:46)
[2021-07-11] MEDS: SOLU-Medrol 40 MG VIAL IVP SCH ×2 (08:16→20:46)
[2021-07-11] MEDS: MILK OF MAGNESIA PO SCH ×2 (08:17→20:45)
[2021-07-11] MEDS: LOVENOX INJ 40 MG SYR SC SCH (08:18)
[2021-07-11] MEDS: COLACE CAP 100 MG PO SCH ×2 (08:19→20:45)
[2021-07-11] MEDS: TENORMIN PO SCH (08:20)
[2021-07-11] MEDS: MONOKET or IMDUR PO SCH ×2 (08:20→20:46)
[2021-07-11] MEDS: ZESTRIL TAB 10 MG PO SCH ×2 (08:21→20:45)
[2021-07-11] MEDS: BUSPAR PO SCH ×2 (08:21→20:45)
[2021-07-11] MEDS: XANAX PO PRN (08:21)
[2021-07-11] MEDS: ROCEPHIN VIAL 1 GRAM 1 G in NS 100 ML IV 100 ML IV SCH (08:27)
[2021-07-11] MEDS: PULMICORT NEB TX 0.5 MG NEB SCH ×2 (08:45→21:03)
[2021-07-11] MEDS: BROVANA IN SCH ×2 (08:46→21:03)
[2021-07-11] MEDS ORDERED: MICRO K EXTEN CAP 10 MEQ PO ONE (09:00)
[2021-07-11] MEDS ORDERED: LASIX IVP ONE (09:00)
[2021-07-11 09:34] LABS: ABG BASE EXCESS 17.1 mmol/L (-2.0-2.0)
[2021-07-11 09:35] LABS: ABG HCO3 43.7 mmol/L (22-26)
[2021-07-11] MEDS: XANAX PO SCH ×3 (09:51→22:12)
[2021-07-11] MEDS: NS 1,000 ML IV 1,000 ML IV SCH (09:55)
[2021-07-11 10:49] LABS: BILIRUBIN,URINE NEGATIVE (NEGATIVE); BLOOD/HEMOGLOBIN,URINE NEGATIVE (NEGATIVE); GLUCOSE, URINE NEGATIVE (NEGATIVE); KETONES,URINE NEGATIVE (NEGATIVE); LEUKOCYTE ESTERASE ,URINE NEGATIVE (NEGATIVE); NITRITES,URINE NEGATIVE (NEGATIVE); PROTEIN,URINE NEGATIVE (NEGATIVE); UROBILINOGEN,URINE NORMAL (NORMAL)
[2021-07-11 10:52] LABS: APPEARANCE,URINE CLEAR (CLEAR); COLOR,URINE PALE YELLOW (YELLOW)
[2021-07-11] MEDS ORDERED: MORPHINE SULFATE INJ 2 MG INJ IVP PRN (13:27)
[2021-07-11] MEDS ORDERED: APRESOLINE INJ 20 MG VIAL IVP PRN (13:39)
[2021-07-11] MEDS ORDERED: BENADRYL INJ 50 MG VIAL IVP PRN (13:40)
[2021-07-11] MEDS ORDERED: MICRO K EXTEN CAP 10 MEQ PO SCH (14:00)
[2021-07-11] MEDS: ROBITUSSIN DM PO SCH ×3 (17:38→20:46)
[2021-07-11] MEDS ORDERED: MONOKET or IMDUR PO ONE (18:58)
[2021-07-11] MEDS: ELAVIL PO SCH (20:45)
[2021-07-12 05:06] LABS: BASOPHILS % (AUTO) 0.2 % (0.2-1.0); HEMATOCRIT 35.4 % (36.0-47.0); HEMOGLOBIN 11.8 g/dL (12.0-16.0); LYMPHOCYTES # (AUTO) 0.6 X10^3/uL (1.3-2.9); LYMPHOCYTES % (AUTO) 4.8 % (21.0-51.0); MEAN CORPUSCULAR HEMOGLOBIN 30.5 pg (27.0-34.0); MEAN CORPUSCULAR HGB CONC 33.3 g/dL (33.0-35.0); MEAN CORPUSCULAR VOLUME 91.6 fL (80.0-100.0); MEAN PLATELET VOLUME 7.5 fL (7.4-11.0); MONOCYTES # (AUTO) 0.8 x10^3/uL (0.3-0.8); NEUTROPHILS # (AUTO) 11.2 x10^3/uL (2.2-4.8); RED BLOOD COUNT 3.87 X10^6/uL (3.5-5.4); WHITE BLOOD COUNT 12.6 X10^3/uL (3.6-10.0)
[2021-07-12] MEDS: XANAX PO SCH ×4 (05:12→21:08)
[2021-07-12] MEDS: NORCO 5/325 MG TAB PO PRN ×2 (05:13→18:37)
[2021-07-12 05:19] LABS: ALANINE AMINOTRANSFERASE 17 Units/L (12-78); ALBUMIN 2.4 g/dL (3.4-5.0); ALKALINE PHOSPHATASE 69 Units/L (46-116); ASPARTATE AMINO TRANSFERASE 15 Units/L (15-37); BLOOD UREA NITROGEN 19 mg/dL (7-18); CALCIUM 9.2 mg/dL (8.5-10.1); CARBON DIOXIDE 39.2 mmol/L (21-32); CHLORIDE 95 mmol/L (98-107); COR CA(FOR HYPOALB) 10.5 mg/dL (8.5-10.1); COR NA(FOR HYPERGLY) 134 mmol/L (136-145); CREATININE 0.78 mg/dL (0.55-1.02); MAGNESIUM 2.3 mg/dL (1.7-2.9); SODIUM 133 mmol/L (136-145); TOTAL PROTEIN 6.1 g/dL (6.4-8.2); eGFR NON BLACK RACES > 60 (>60)
[2021-07-12] MEDS: MUCOMYST 20% 200 MG/ML NEB SCH ×4 (06:29→17:20)
[2021-07-12] MEDS: XOPENEX 1.25 MG/3 ML NEBULE NEB SCH ×4 (06:29→17:20)
[2021-07-12] MEDS: COLACE CAP 100 MG PO SCH ×2 (08:20→20:51)
[2021-07-12] MEDS: MONOKET or IMDUR PO SCH ×2 (08:21→20:49)
[2021-07-12] MEDS: BUSPAR PO SCH ×2 (08:24→20:50)
[2021-07-12] MEDS: ZESTRIL TAB 10 MG PO SCH ×2 (08:25→20:50)
[2021-07-12] MEDS: TENORMIN PO SCH (08:25)
[2021-07-12] MEDS: LASIX PO SCH (08:26)
[2021-07-12] MEDS: ROCEPHIN VIAL 1 GRAM 1 G in NS 100 ML IV 100 ML IV SCH (08:26)
[2021-07-12] MEDS: ROBITUSSIN DM PO SCH ×4 (08:26→20:49)
[2021-07-12] MEDS: LOVENOX INJ 40 MG SYR SC SCH (08:28)
[2021-07-12] MEDS: MILK OF MAGNESIA PO SCH ×2 (08:29→20:49)
[2021-07-12] MEDS: PROTONIX INJ 40 MG VIAL IVP SCH ×2 (08:30→20:51)
[2021-07-12] MEDS: SOLU-Medrol 40 MG VIAL IVP SCH ×2 (08:30→20:49)
[2021-07-12] MEDS: PULMICORT NEB TX 0.5 MG NEB SCH ×2 (09:15→20:51)
[2021-07-12] MEDS: BROVANA IN SCH ×2 (09:15→20:51)
--- NOTE | 2021-07-12 16:07 | PCM.PROG ---
Progress Note - Subjective Subjective: Patient is a 75 year old white female who was admitted as per HPI. Patient is alert and oriented. Not ambulatory due to chronic arthritis-RA. Patient and family report improvement in breathing however she does have episodes of dyspnea. Patient reports chronic pain in controlled with current pain medications regimen. Discussed with family CXR and questionable mass. Family states they would not like to proceed with further testing regarding this questionable mass. Family is discussing discharge planning regarding hospice; pending their decision. Patient and family do report patient has chronic constipation and has not had a BM in over a week. Patient denies nausea or abdominal pain. Patient continues to have poor appetite and poor PO intake which is chronic. Patient is on dulcolax and MOM prn for constipation. Patient does not want an enema at this time bc she is not uncomfortable. Patient and family continue to report anxiety which is better controlled with med changes yesterday. Labs, imaging, vitals, and meds reviewed. No new concerns at present. - Past Medical Family Social History Allergies: Allergies codeine Allergy (Intermediate, Verified 10/18/20 07:18) disorientation - Review of Systems ROS: No change since H&P - Vital Signs and I&O's Vital Signs: Temperature 98.0 F Pulse Rate 87 Respiratory Rate 24 Blood Pressure [Left Arm] 165/80 Blood Pressure 141/69 O2 Sat by Pulse Oximetry 98 Intake and Output: Intake & Output 07/09/21 07/10/21 07/11/21 07/12/21 23:59 23:59 23:59 23:59 Intake Total 528 / 528 1365 / 1365 1400 / 1400 1410 / 1410 Output Total 200 / 200 1375 / 1375 950 / 950 Balance 328 / 328 1365 / 1365 25 / 460 / 460 - Physical Exam Oriented: Normal Eyes: Normal Ear: Normal Nose: Normal Throat: Dry Respiratory: Generalized, Diminished, Rhonchi Cardiovascular: Tachycardia. negative: Edema : Normal (Johnson for comfort) Auscultation: Bowel Sounds: Normal Palpation: Normal Tenderness: Normal Skin: Decreased Turgur Musculoskeletal: Right, Left, Swelling (DIFFUSE SMALL JOINT SWELLING, HAND AND TOE CHRONIC DEFORMITY FOR RA), Tender, Deformity (Contractures of hands bilaterally due to RA.), Motor Deficit Psychiatric: Anxiety Mood Description: Calm, Anxious Affect: Anxious Speech Pattern: Clear, Appropriate - Laboratory and Diagnostics Result Diagrams: 07/12/21 04:50 07/12/21 04:50 Labs: 07/12/21 12:14 Sputum - Expectorated Sputum - Final 07/09/21 16:20 Sputum - Expectorated Sputum Sputum Culture - Final Enterobacter Aerogenes 07/09/21 16:20 Sputum - Expectorated Sputum - Final Laboratory WBC 12.6 X10^3/uL (3.6-10.0) H 07/12/21 04:50 RBC 3.87 X10^6/uL (3.5-5.4) 07/12/21 04:50 Hgb 11.8 g/dL (12.0-16.0) L 07/12/21 04:50 Hct 35.4 % (36.0-47.0) L 07/12/21 04:50 MCV 91.6 fL (80.0-100.0) 07/12/21 04:50 MCH 30.5 pg (27.0-34.0) 07/12/21 04:50 MCHC 33.3 g/dL (33.0-35.0) 07/12/21 04:50 RDW 14.0 % (11.6-16.5) 07/12/21 04:50 Plt Count 227 X10^3/uL (150.0-450.0) 07/12/21 04:50 MPV 7.5 fL (7.4-11.0) 07/12/21 04:50 Neut % (Auto) 89.0 % (42.0-75.0) H 07/12/21 04:50 Lymph % (Auto) 4.8 % (21.0-51.0) L 07/12/21 04:50 [place] % (Auto) 6.0 % (0.0-13.0) 07/12/21 04:50 Eos % (Auto) 0.0 % (0.9-2.9) L 07/12/21 04:50 Baso % (Auto) 0.2 % (0.2-1.0) 07/12/21 04:50 Neut # (Auto) 11.2 x10^3/uL (2.2-4.8) H 07/12/21 04:50 Lymph # (Auto) 0.6 X10^3/uL (1.3-2.9) L 07/12/21 04:50 [place] # (Auto) 0.8 x10^3/uL (0.3-0.8) 07/12/21 04:50 Eos # (Auto) 0.0 x10^3/uL (0.0-0.2) 07/12/21 04:50 Baso # (Auto) 0.0 X10^3/uL (0.0-0.1) 07/12/21 04:50 Absolute Nucleated RBC 0.0 /100WBC 07/12/21 04:50 D-Dimer 19.71 ug/ml (0.0-0.57) H* 07/11/21 09:12 Sample Site Lbra 07/11/21 09:29 ABG pH 7.470 (7.35-7.45) H 07/11/21 09:29 ABG pCO2 60.0 mmHg (35.0-45.0) H* 07/11/21 09:29 ABG pO2 74.0 mmHg (80.0-100.0) L 07/11/21 09:29 ABG HCO3 43.7 mmol/L (22-26) H* 07/11/21 09:29 ABG O2 Saturation 96.0 % (90-100) 07/11/21 09:29 ABG Base Excess 17.1 mmol/L (-2.0-2.0) H 07/11/21 09:29 Jarred Test N/a 07/11/21 09:29 A-a Gradient 51.0 mmHg 07/11/21 09:29 FiO2 28.0 07/11/21 09:29 Blood Gas Comments Pt katja well elj 07/11/21 09:29 Sodium 133 mmol/L (136-145) L 07/12/21 04:50 Corrected Sodium 134 mmol/L (136-145) L 07/12/21 04:50 Potassium 4.4 mmol/L (3.5-5.1) 07/12/21 04:50 Chloride 95 mmol/L (98-107) L 07/12/21 04:50 Carbon Dioxide 39.2 mmol/L (21-32) H 07/12/21 04:50 BUN 19 mg/dL (7-18) H 07/12/21 04:50 Creatinine 0.78 mg/dL (0.55-1.02) 07/12/21 04:50 Est GFR (MDRD) Af Amer > 60 (>60) 07/12/21 04:50 Est GFR (MDRD) Non-Af > 60 (>60) 07/12/21 04:50 Glucose 151 mg/dL (65-99) H 07/12/21 04:50 Calcium 9.2 mg/dL (8.5-10.1) 07/12/21 04:50 Corrected Calcium 10.5 mg/dL (8.5-10.1) H 07/12/21 04:50 Magnesium 2.3 mg/dL (1.7-2.9) 07/12/21 04:50 Total Bilirubin 0.40 mg/dL (0.2-1.0) 07/12/21 04:50 AST 15 Units/L (15-37) 07/12/21 04:50 ALT 17 Units/L (12-78) 07/12/21 04:50 Alkaline Phosphatase 69 Units/L (46-116) 07/12/21 04:50 Lactate Dehydrogenase 316 Units/L (81-234) H 07/09/21 18:34 Lactate Dehydrogenase Cancelled 07/09/21 18:34 Creatine Kinase 81 Units/L (26-192) 07/10/21 00:20 CK-MB (CK-2) 6.6 ng/mL (0-4.0) H* 07/10/21 00:20 CK/CKMB % Calc 8.2 % (<4) 07/10/21 00:20 Troponin I High Sens 19.3 ng/L (4.0-60.0) 07/10/21 00:20 Total Protein 6.1 g/dL (6.4-8.2) L 07/12/21 04:50 Albumin 2.4 g/dL (3.4-5.0) L 07/12/21 04:50 Globulin 3.7 g/dL (2.5-4.5) 07/12/21 04:50 Albumin/Globulin Ratio 0.6 Ratio (1.1-2.1) L 07/12/21 04:50 CA 19-9 Antigen 69 U/mL (<=35) H 07/09/21 18:34 CA 125 Antigen 54 U/mL (<=38) H 07/09/21 18:34 Specimen Type Catherized urine 07/11/21 10:10 Urine Color Pale yellow (YELLOW) 07/11/21 10:10 Urine Appearance Clear (CLEAR) 07/11/21 10:10 Urine pH 7.0 (5.0 - 8.0) 07/11/21 10:10 Ur Specific [place] 1.005 (1.000-1.030) 07/11/21 10:10 Urine Protein Negative (NEGATIVE) 07/11/21 10:10 Urine Glucose (UA) Negative (NEGATIVE) 07/11/21 10:10 Urine Ketones Negative (NEGATIVE) 07/11/21 10:10 Urine Blood Negative (NEGATIVE) 07/11/21 10:10 Urine Nitrite Negative (NEGATIVE) 07/11/21 10:10 Urine Bilirubin Negative (NEGATIVE) 07/11/21 10:10 Urine Urobilinogen Normal (NORMAL) 07/11/21 10:10 Ur Leukocyte Esterase Negative (NEGATIVE) 07/11/21 10:10 - Plan (1) Acute exacerbation of chronic obstructive pulmonary disease Status: Acute Plan: IV abx and steroids. Oxygen supplementation. Cultures. Repeat labs and CXR in am (2) Anxiety Status: Acute Plan: Xanax, Elavil, Buspar (3) Lung mass Status: Acute Plan: Family wants comfort measures only;mno intervention or further testing (4) Constipation due to opioid therapy Status: Chronic Plan: MOM, colace, Lactulose added (5) Malignant hypertension Status: Chronic Plan: See med changes (6) Rheumatoid arthritis Status: Chronic Plan: Pain control (7) Hypoxia Status: Acute (8) Respiratory distress Status: Acute Plan: As above (9) Weakness Status: Chronic (10) Emphysema lung Status: Chronic (11) History of smoking Status: Chronic (12) Chronic pain syndrome Status: Chronic Plan: Pain control
--- NOTE | 2021-07-12 17:07 | RAD ---
HISTORYFOLLOW UP, SOB, COPD Relevant Clinical InformationSTUDYCHEST, 1 VIEWCOMPARISONChest x-ray dated July 09, 2021.FINDINGSThe trachea is midline. The cardiac silhouette is unchanged. Ectatic thoracic aorta. Chronic emphysematous changes. The lungs are clear without focal infiltrate, pneumothorax, or effusion. The bony thorax is unremarkable.IMPRESSIONNo acute cardiopulmonary findings .Electronically signed by: BRAEDEN GROVE (Jul 12, 2021 17:06:26)
[2021-07-12] MEDS: CHRONULAC PO SCH (18:05)
[2021-07-12] MEDS: NS 1,000 ML IV 1,000 ML IV SCH (18:58)
[2021-07-12] MEDS: ELAVIL PO SCH (20:50)
[2021-07-13] MEDS: XOPENEX 1.25 MG/3 ML NEBULE NEB SCH ×4 (00:18→17:05)
[2021-07-13] MEDS: MUCOMYST 20% 200 MG/ML NEB SCH ×4 (00:18→17:05)
[2021-07-13] MEDS: NORCO 5/325 MG TAB PO PRN ×2 (02:16→19:22)
[2021-07-13] MEDS: XANAX PO SCH ×3 (05:28→21:45)
--- NOTE | 2021-07-13 05:31 | RAD ---
HISTORYFOLLOW UP, SOB, COPD Relevant Clinical InformationSTUDYCHEST, 1 [id number]/2022FINDINGSThe trachea is midline. The cardiac silhouette is unremarkable.Chronic interstitial lung changes with flattening of the diaphragm consistent with COPD is observed The lungs are clear without focal infiltrate or effusion. The bony thorax is unremarkable.IMPRESSIONCOPD.No active cardiopulmonary disease.Electronically signed by: Primitivo Garcia (Jul 13, 2021 05:31:51)
[2021-07-13 05:40] LABS: BASOPHILS % (AUTO) 0.1 % (0.2-1.0); HEMATOCRIT 35.1 % (36.0-47.0); HEMOGLOBIN 11.6 g/dL (12.0-16.0); LYMPHOCYTES # (AUTO) 0.5 X10^3/uL (1.3-2.9); LYMPHOCYTES % (AUTO) 4.5 % (21.0-51.0); MEAN CORPUSCULAR HEMOGLOBIN 30.4 pg (27.0-34.0); MEAN PLATELET VOLUME 7.6 fL (7.4-11.0); MONOCYTES # (AUTO) 0.6 x10^3/uL (0.3-0.8); MONOCYTES % (AUTO) 5.4 % (0.0-13.0); NEUTROPHILS # (AUTO) 10.4 x10^3/uL (2.2-4.8); RED BLOOD COUNT 3.81 X10^6/uL (3.5-5.4); RED CELL DISTRIBUTION WIDTH 13.8 % (11.6-16.5); WHITE BLOOD COUNT 11.5 X10^3/uL (3.6-10.0)
[2021-07-13 05:42] LABS: ALANINE AMINOTRANSFERASE 20 Units/L (12-78); ALBUMIN 2.4 g/dL (3.4-5.0); ALKALINE PHOSPHATASE 70 Units/L (46-116); ASPARTATE AMINO TRANSFERASE 16 Units/L (15-37); BLOOD UREA NITROGEN 14 mg/dL (7-18); CALCIUM 9.1 mg/dL (8.5-10.1); CARBON DIOXIDE 37.1 mmol/L (21-32); CHLORIDE 98 mmol/L (98-107); COR CA(FOR HYPOALB) 10.4 mg/dL (8.5-10.1); COR NA(FOR HYPERGLY) 136 mmol/L (136-145); CREATININE 0.68 mg/dL (0.55-1.02); SODIUM 135 mmol/L (136-145); TOTAL PROTEIN 6.1 g/dL (6.4-8.2); eGFR NON BLACK RACES > 60 (>60)
[2021-07-13 05:47] LABS: ABG BASE EXCESS 17.8 mmol/L (-2.0-2.0)
[2021-07-13 05:48] LABS: ABG ALLEN TEST POS; ABG HCO3 44.8 mmol/L (22-26)
[2021-07-13] MEDS: PULMICORT NEB TX 0.5 MG NEB SCH ×2 (09:40→20:15)
[2021-07-13] MEDS: BROVANA IN SCH ×2 (09:40→20:15)
[2021-07-13] MEDS: MILK OF MAGNESIA PO SCH ×2 (09:48→21:52)
[2021-07-13] MEDS: ROCEPHIN VIAL 1 GRAM 1 G in NS 100 ML IV 100 ML IV SCH (09:48)
[2021-07-13] MEDS: ROBITUSSIN DM PO SCH ×3 (09:48→21:43)
[2021-07-13] MEDS: ZESTRIL TAB 10 MG PO SCH ×2 (09:49→21:44)
[2021-07-13] MEDS: SOLU-Medrol 40 MG VIAL IVP SCH ×2 (09:49→21:45)
[2021-07-13] MEDS: CHRONULAC PO SCH (09:49)
[2021-07-13] MEDS: COLACE CAP 100 MG PO SCH ×2 (09:49→21:52)
[2021-07-13] MEDS: MONOKET or IMDUR PO SCH ×2 (09:50→21:46)
[2021-07-13] MEDS: LASIX PO SCH (09:50)
[2021-07-13] MEDS: TENORMIN PO SCH (09:50)
[2021-07-13] MEDS: PROTONIX INJ 40 MG VIAL IVP SCH ×2 (09:52→21:45)
[2021-07-13] MEDS: BUSPAR PO SCH ×2 (09:52→21:48)
[2021-07-13] MEDS: NS 1,000 ML IV 1,000 ML IV SCH (17:05)
[2021-07-13] MEDS: LOVENOX INJ 40 MG SYR SC SCH (17:05)
[2021-07-13] MEDS: ELAVIL PO SCH (21:44)
[2021-07-14] MEDS: XOPENEX 1.25 MG/3 ML NEBULE NEB SCH ×4 (00:32→16:25)
[2021-07-14] MEDS: MUCOMYST 20% 200 MG/ML NEB SCH ×4 (00:32→16:25)
--- NOTE | 2021-07-14 02:02 | PCM.PROG ---
Progress Note - Progress Note for Day of Date of Exam: 07/13/21 - Subjective Subjective: Patient is a 75 year old white female who was admitted as per HPI. Patient is alert and oriented. Not ambulatory due to chronic arthritis-RA. Patient and family report improvement in breathing however she does have episodes of dyspnea. Patient reports chronic pain in controlled with current p ain medications regimen. Discussed with family CXR and questionable mass. Family states they would not like to proceed with further testing regarding this questionable mass. Family has decided on discharging home with hospice on Friday. Patient continues to have poor appetite and poor PO intake which is chronic. Patient and family continue to report anxiety and loss of sleep due to anxiety. Labs, imaging, vitals, and meds reviewed. No new concerns at present. Plan for dc home with hospice on Friday - Past Medical Family Social History Past Med/Fam/Surg Hx: No changes since H&P Allergies: Allergies codeine Allergy (Intermediate, Verified 10/18/20 07:18) disorientation - Review of Systems ROS: No change since H&P - Vital Signs and I&O's Vital Signs: Temperature 97.9 F Pulse Rate [Left] 97 Pulse Rate 87 Respiratory Rate 18 Blood Pressure [Left Arm] 130/60 Blood Pressure 173/81 O2 Sat by Pulse Oximetry 100 Intake and Output: Intake & Output 07/11/21 07/12/21 07/13/21 07/14/21 23:59 23:59 23:59 23:59 Intake Total 1400 / 1400 2554 / 2554 1765 / 1765 444 / 444 Output Total 1375 / 1375 1750 / 1750 1720 / 1720 525 / 525 Balance 25 / 804 / 804 45 / 45 -81 / -81 - Physical Exam Oriented: Normal Eyes: Normal Ear: Normal Nose: Normal Throat: Dry Respiratory: Generalized, Diminished, Rhonchi Cardiovascular: Tachycardia. negative: Edema : Normal (Johnson for comfort) Auscultation: Bowel Sounds: Normal Palpation: Normal Tenderness: Normal Skin: Decreased Turgur Musculoskeletal: Right, Left, Swelling (DIFFUSE SMALL JOINT SWELLING, HAND AND TOE CHRONIC DEFORMITY FOR RA), Tender, Deformity (Contractures of hands b ilaterally due to RA.), Motor Deficit Psychiatric: Anxiety Mood Description: Calm, Anxious Affect: Anxious Speech Pattern: Clear, Appropriate - Laboratory and Diagnostics Result Diagrams: 07/13/21 04:45 07/13/21 04:45 Labs: 07/12/21 12:14 Sputum - Expectorated Sputum Sputum Culture - Preliminary 07/12/21 12:14 Sputum - Expectorated Sputum - Final 07/09/21 16:20 Sputum - Expectorated Sputum Sputum Culture - Final Enterobacter Aerogenes 07/09/21 16:20 Sputum - Expectorated Sputum - Final Laboratory WBC 11.5 X10^3/uL (3.6-10.0) H 07/13/21 04:45 RBC 3.81 X10^6/uL (3.5-5.4) 07/13/21 04:45 Hgb 11.6 g/dL (12.0-16.0) L 07/13/21 04:45 Hct 35.1 % (36.0-47.0) L 07/13/21 04:45 MCV 92.0 fL (80.0-100.0) 07/13/21 04:45 MCH 30.4 pg (27.0-34.0) 07/13/21 04:45 MCHC 33.0 g/dL (33.0-35.0) 07/13/21 04:45 RDW 13.8 % (11.6-16.5) 07/13/21 04:45 Plt Count 256 X10^3/uL (150.0-450.0) 07/13/21 04:45 MPV 7.6 fL (7.4-11.0) 07/13/21 04:45 Neut % (Auto) 90.0 % (42.0-75.0) H 07/13/21 04:45 Lymph % (Auto) 4.5 % (21.0-51.0) L 07/13/21 04:45 [place] % (Auto) 5.4 % (0.0-13.0) 07/13/21 04:45 Eos % (Auto) 0.0 % (0.9-2.9) L 07/13/21 04:45 Baso % (Auto) 0.1 % (0.2-1.0) L 07/13/21 04:45 Neut # (Auto) 10.4 x10^3/uL (2.2-4.8) H 07/13/21 04:45 Lymph # (Auto) 0.5 X10^3/uL (1.3-2.9) L 07/13/21 04:45 [place] # (Auto) 0.6 x10^3/uL (0.3-0.8) 07/13/21 04:45 Eos # (Auto) 0.0 x10^3/uL (0.0-0.2) 07/13/21 04:45 Baso # (Auto) 0.0 X10^3/uL (0.0-0.1) 07/13/21 04:45 Absolute Nucleated RBC 0.0 /100WBC 07/13/21 04:45 D-Dimer 19.71 ug/ml (0.0-0.57) H* 07/11/21 09:12 Sample Site Lrad 07/13/21 05:44 ABG pH 7.460 (7.35-7.45) H 07/13/21 05:44 ABG pCO2 63.0 mmHg (35.0-45.0) H* 07/13/21 05:44 ABG pO2 120.0 mmHg (80.0-100.0) H 07/13/21 05:44 ABG HCO3 44.8 mmol/L (22-26) H* 07/13/21 05:44 ABG O2 Saturation 99.0 % (90-100) 07/13/21 05:44 ABG Base Excess 17.8 mmol/L (-2.0-2.0) H 07/13/21 05:44 Jarred Test Pos 07/13/21 05:44 A-a Gradient 29.0 mmHg 07/13/21 05:44 FiO2 32.0 07/13/21 05:44 Blood Gas Comments katja well ms 07/13/21 05:44 Sodium 135 mmol/L (136-145) L 07/13/21 04:45 Corrected Sodium 136 mmol/L (136-145) 07/13/21 04:45 Potassium 4.7 mmol/L (3.5-5.1) 07/13/21 04:45 Chloride 98 mmol/L (98-107) 07/13/21 04:45 Carbon Dioxide 37.1 mmol/L (21-32) H 07/13/21 04:45 BUN 14 mg/dL (7-18) 07/13/21 04:45 Creatinine 0.68 mg/dL (0.55-1.02) 07/13/21 04:45 Est GFR (MDRD) Af Amer > 60 (>60) 07/13/21 04:45 Est GFR (MDRD) Non-Af > 60 (>60) 07/13/21 04:45 Glucose 132 mg/dL (65-99) H 07/13/21 04:45 Calcium 9.1 mg/dL (8.5-10.1) 07/13/21 04:45 Corrected Calcium 10.4 mg/dL (8.5-10.1) H 07/13/21 04:45 Magnesium 2.3 mg/dL (1.7-2.9) 07/12/21 04:50 Total Bilirubin 0.30 mg/dL (0.2-1.0) 07/13/21 04:45 AST 16 Units/L (15-37) 07/13/21 04:45 ALT 20 Units/L (12-78) 07/13/21 04:45 Alkaline Phosphatase 70 Units/L (46-116) 07/13/21 04:45 Lactate Dehydrogenase 316 Units/L (81-234) H 07/09/21 18:34 Lactate Dehydrogenase Cancelled 07/09/21 18:34 Creatine Kinase 81 Units/L (26-192) 07/10/21 00:20 CK-MB (CK-2) 6.6 ng/mL (0-4.0) H* 07/10/21 00:20 CK/CKMB % Calc 8.2 % (<4) 07/10/21 00:20 Troponin I High Sens 19.3 ng/L (4.0-60.0) 07/10/21 00:20 Total Protein 6.1 g/dL (6.4-8.2) L 07/13/21 04:45 Albumin 2.4 g/dL (3.4-5.0) L 07/13/21 04:45 Globulin 3.7 g/dL (2.5-4.5) 07/13/21 04:45 Albumin/Globulin Ratio 0.6 Ratio (1.1-2.1) L 07/13/21 04:45 CA 19-9 Antigen 69 U/mL (<=35) H 07/09/21 18:34 CA 125 Antigen 54 U/mL (<=38) H 07/09/21 18:34 Specimen Type Catherized urine 07/11/21 10:10 Urine Color Pale yellow (YELLOW) 07/11/21 10:10 Urine Appearance Clear (CLEAR) 07/11/21 10:10 Urine pH 7.0 (5.0 - 8.0) 07/11/21 10:10 Ur Specific [place] 1.005 (1.000-1.030) 07/11/21 10:10 Urine Protein Negative (NEGATIVE) 07/11/21 10:10 Urine Glucose (UA) Negative (NEGATIVE) 07/11/21 10:10 Urine Ketones Negative (NEGATIVE) 07/11/21 10:10 Urine Blood Negative (NEGATIVE) 07/11/21 10:10 Urine Nitrite Negative (NEGATIVE) 07/11/21 10:10 Urine Bilirubin Negative (NEGATIVE) 07/11/21 10:10 Urine Urobilinogen Normal (NORMAL) 07/11/21 10:10 Ur Leukocyte Esterase Negative (NEGATIVE) 07/11/21 10:10 Stool Description 60 g. unformed/brown 07/12/21 21:55 Stl Occult Blood (IFOB) Positive (NEGATIVE) A 07/12/21 21:55 - Plan (1) Acute exacerbation of chronic obstructive pulmonary disease Status: Acute Plan: IV abx and steroids. Oxygen supplementation. Cultures. Repeat labs and CXR in am (2) Anxiety Status: Acute Plan: Xanax, Elavil, Buspar all scheduled. Add Xanax 0.5mg PO q 6 hours prn for breakthrough anxiety. (3) Lung mass Status: Acute Plan: Family wants comfort measures only;mno intervention or further testing (4) Constipation due to opioid therapy Status: Chronic Plan: MOM, colace, Lactulose added (5) Malignant hypertension Status: Chronic Plan: See med changes (6) Rheumatoid arthritis Status: Chronic Plan: Pain control (7) Hypoxia Status: Acute (8) Respiratory distress Status: Acute Plan: As above (9) Weakness Status: Chronic (10) Emphysema lung Status: Chronic (11) History of smoking Status: Chronic (12) Chronic pain syndrome Status: Chronic Plan: Pain control
[2021-07-14 05:01] LABS: BASOPHILS % (AUTO) 0.1 % (0.2-1.0); HEMATOCRIT 34.8 % (36.0-47.0); HEMOGLOBIN 11.6 g/dL (12.0-16.0); LYMPHOCYTES # (AUTO) 0.6 X10^3/uL (1.3-2.9); LYMPHOCYTES % (AUTO) 4.9 % (21.0-51.0); MEAN CORPUSCULAR HEMOGLOBIN 30.5 pg (27.0-34.0); MEAN CORPUSCULAR HGB CONC 33.3 g/dL (33.0-35.0); MEAN CORPUSCULAR VOLUME 91.8 fL (80.0-100.0); MEAN PLATELET VOLUME 7.5 fL (7.4-11.0); MONOCYTES # (AUTO) 0.4 x10^3/uL (0.3-0.8); MONOCYTES % (AUTO) 3.6 % (0.0-13.0); NEUTROPHILS # (AUTO) 10.9 x10^3/uL (2.2-4.8); NEUTROPHILS % (AUTO) 91.4 % (42.0-75.0); RED BLOOD COUNT 3.79 X10^6/uL (3.5-5.4)
[2021-07-14 05:22] LABS: ALANINE AMINOTRANSFERASE 19 Units/L (12-78); ALBUMIN 2.3 g/dL (3.4-5.0); ALKALINE PHOSPHATASE 69 Units/L (46-116); ASPARTATE AMINO TRANSFERASE 16 Units/L (15-37); BLOOD UREA NITROGEN 12 mg/dL (7-18); CARBON DIOXIDE 35.6 mmol/L (21-32); CHLORIDE 98 mmol/L (98-107); COR CA(FOR HYPOALB) 10.4 mg/dL (8.5-10.1); COR NA(FOR HYPERGLY) 135 mmol/L (136-145); CREATININE 0.69 mg/dL (0.55-1.02); SODIUM 134 mmol/L (136-145); TOTAL PROTEIN 5.9 g/dL (6.4-8.2); eGFR NON BLACK RACES > 60 (>60)
[2021-07-14] MEDS: XANAX PO SCH ×3 (05:28→22:05)
[2021-07-14 06:18] LABS: PLATELET MORPHOLOGY COMMENT NORMAL (NORMAL)
[2021-07-14] MEDS: PULMICORT NEB TX 0.5 MG NEB SCH ×2 (08:44→21:10)
[2021-07-14] MEDS: BROVANA IN SCH ×2 (08:44→21:10)
[2021-07-14] MEDS: ROBITUSSIN DM PO SCH ×4 (09:00→21:02)
[2021-07-14] MEDS: ROCEPHIN VIAL 1 GRAM 1 G in NS 100 ML IV 100 ML IV SCH (10:05)
[2021-07-14] MEDS: PROTONIX INJ 40 MG VIAL IVP SCH ×2 (10:06→21:03)
[2021-07-14] MEDS: SOLU-Medrol 40 MG VIAL IVP SCH ×2 (10:06→21:01)
[2021-07-14] MEDS: MONOKET or IMDUR PO SCH ×2 (10:06→21:02)
[2021-07-14] MEDS: LASIX PO SCH (10:07)
[2021-07-14] MEDS: ZESTRIL TAB 10 MG PO SCH ×2 (10:07→21:00)
[2021-07-14] MEDS: TENORMIN PO SCH (10:07)
[2021-07-14] MEDS: BUSPAR PO SCH ×2 (10:10→21:02)
[2021-07-14] MEDS: NORCO 5/325 MG TAB PO PRN (10:29)
[2021-07-14] MEDS: CHRONULAC PO SCH (10:39)
[2021-07-14] MEDS: LOVENOX INJ 40 MG SYR SC SCH (10:39)
[2021-07-14] MEDS: MILK OF MAGNESIA PO SCH ×2 (10:40→21:03)
[2021-07-14] MEDS: COLACE CAP 100 MG PO SCH ×2 (10:41→21:03)
[2021-07-14] MEDS: NS 1,000 ML IV 1,000 ML IV SCH (10:41)
--- NOTE | 2021-07-14 11:14 | PCM.PROG ---
Progress Note Progress Note for Day of Date of Exam: 07/14/21 Subjective Subjective: Patient seen at bedside, no events overnight. She states she slept well. She has not been eating much, small bites as tolerated. She has been admitted for COPD exacerbation. She is currently on 2L NC. Patient's CT-chest showed a questionable mass/opacity that could be concerning for malignancy. Family has decided they would not like to proceed with further testing regarding this questionable mass. Family has decided on discharging home with hospice on Friday. Labs reviewed Sputum: Gram (-) rods Plan: continue current care with solumedrol and IV Rocephin. Continue nebs prn. Encouraged PO intake. Wean O2 as tolerated. Continue pain control. Plan to go home with hospice on Friday. Monitor AM labs/imaging. Past Medical Family Social History Past Med/Fam/Surg Hx: No changes since H&P Allergies: Allergies codeine Allergy (Intermediate, Verified 10/18/20 07:18) disorientation Review of Systems ROS: No change since H&P Vital Signs and I&O's Vital Signs: Temperature 97.2 F Pulse Rate [Left] 83 Pulse Rate 83 Respiratory Rate 18 Blood Pressure [Left Arm] 184/84 Blood Pressure 173/81 O2 Sat by Pulse Oximetry 97 Intake and Output: Intake & Output 07/11/21 07/12/21 07/13/21 07/14/21 23:59 23:59 23:59 23:59 Intake Total 1400 / 1400 2554 / 2554 1765 / 1765 814 / 814 Output Total 1375 / 1375 1750 / 1750 1720 / 1720 650 / 650 Balance 25 / 25 804 / 804 45 / 45 164 / 164 Physical Exam Oriented: Normal Eyes: Normal Ear: Normal Nose: Normal Throat: Dry Respiratory: Generalized and Diminished Cardiovascular: Normal; negative Edema : Normal (Johnson for comfort) Auscultation: Bowel Sounds: Normal Tenderness: Normal Skin: Decreased Turgur Musculoskeletal: Right, Left, Swelling (DIFFUSE SMALL JOINT SWELLING, HAND AND TOE CHRONIC DEFORMITY FOR RA), Tender, Deformity (Contractures of hands bilaterally due to RA.) and Motor Deficit Psychiatric: Normal Mood Description: Calm Affect: Normal Speech Pattern: Clear and Appropriate Laboratory and Diagnostics Result Diagrams: 07/14/21 04:41 07/14/21 04:41 Labs: 07/12/21 12:14 Sputum - Expectorated Sputum Sputum Culture - Preliminary 07/12/21 12:14 Sputum - Expectorated Sputum - Final 07/09/21 16:20 Sputum - Expectorated Sputum Sputum Culture - Final Enterobacter Aerogenes 07/09/21 16:20 Sputum - Expectorated Sputum - Final Laboratory WBC 12.0 X10^3/uL (3.6-10.0) H 07/14/21 04:41 RBC 3.79 X10^6/uL (3.5-5.4) 07/14/21 04:41 Hgb 11.6 g/dL (12.0-16.0) L 07/14/21 04:41 Hct 34.8 % (36.0-47.0) L 07/14/21 04:41 MCV 91.8 fL (80.0-100.0) 07/14/21 04:41 MCH 30.5 pg (27.0-34.0) 07/14/21 04:41 MCHC 33.3 g/dL (33.0-35.0) 07/14/21 04:41 RDW 14.0 % (11.6-16.5) 07/14/21 04:41 Plt Count 287 X10^3/uL (150.0-450.0) 07/14/21 04:41 Plt Count Comment Adequate (ADEQUATE) 07/14/21 04:41 MPV 7.5 fL (7.4-11.0) 07/14/21 04:41 Neut % (Auto) 91.4 % (42.0-75.0) H 07/14/21 04:41 Lymph % (Auto) 4.9 % (21.0-51.0) L 07/14/21 04:41 [place] % (Auto) 3.6 % (0.0-13.0) 07/14/21 04:41 Eos % (Auto) 0.0 % (0.9-2.9) L 07/14/21 04:41 Baso % (Auto) 0.1 % (0.2-1.0) L 07/14/21 04:41 Neut # (Auto) 10.9 x10^3/uL (2.2-4.8) H 07/14/21 04:41 Lymph # (Auto) 0.6 X10^3/uL (1.3-2.9) L 07/14/21 04:41 [place] # (Auto) 0.4 x10^3/uL (0.3-0.8) 07/14/21 04:41 Eos # (Auto) 0.0 x10^3/uL (0.0-0.2) 07/14/21 04:41 Baso # (Auto) 0.0 X10^3/uL (0.0-0.1) 07/14/21 04:41 Absolute Nucleated RBC 0.0 /100WBC 07/14/21 04:41 Total Counted 100 07/14/21 04:41 Neutrophils % (Manual) 94 % (39-76) H 07/14/21 04:41 Lymphocytes % (Manual) 4 % (13-43) L 07/14/21 04:41 Monocytes % (Manual) 2 % (4-9) L 07/14/21 04:41 Plt Morphology Comment Normal (NORMAL) 07/14/21 04:41 RBC Morphology Normal (NORMAL) 07/14/21 04:41 D-Dimer 19.71 ug/ml (0.0-0.57) H* 07/11/21 09:12 Sample Site Lrad 07/13/21 05:44 ABG pH 7.460 (7.35-7.45) H 07/13/21 05:44 ABG pCO2 63.0 mmHg (35.0-45.0) H* 07/13/21 05:44 ABG pO2 120.0 mmHg (80.0-100.0) H 07/13/21 05:44 ABG HCO3 44.8 mmol/L (22-26) H* 07/13/21 05:44 ABG O2 Saturation 99.0 % (90-100) 07/13/21 05:44 ABG Base Excess 17.8 mmol/L (-2.0-2.0) H 07/13/21 05:44 Jarred Test Pos 07/13/21 05:44 A-a Gradient 29.0 mmHg 07/13/21 05:44 FiO2 32.0 07/13/21 05:44 Blood Gas Comments katja well ms 07/13/21 05:44 Sodium 134 mmol/L (136-145) L 07/14/21 04:41 Corrected Sodium 135 mmol/L (136-145) L 07/14/21 04:41 Potassium 4.8 mmol/L (3.5-5.1) 07/14/21 04:41 Chloride 98 mmol/L (98-107) 07/14/21 04:41 Carbon Dioxide 35.6 mmol/L (21-32) H 07/14/21 04:41 BUN 12 mg/dL (7-18) 07/14/21 04:41 Creatinine 0.69 mg/dL (0.55-1.02) 07/14/21 04:41 Est GFR (MDRD) Af Amer > 60 (>60) 07/14/21 04:41 Est GFR (MDRD) Non-Af > 60 (>60) 07/14/21 04:41 Glucose 133 mg/dL (65-99) H 07/14/21 04:41 Calcium 9.0 mg/dL (8.5-10.1) 07/14/21 04:41 Corrected Calcium 10.4 mg/dL (8.5-10.1) H 07/14/21 04:41 Magnesium 2.3 mg/dL (1.7-2.9) 07/12/21 04:50 Total Bilirubin 0.40 mg/dL (0.2-1.0) 07/14/21 04:41 AST 16 Units/L (15-37) 07/14/21 04:41 ALT 19 Units/L (12-78) 07/14/21 04:41 Alkaline Phosphatase 69 Units/L (46-116) 07/14/21 04:41 Lactate Dehydrogenase 316 Units/L (81-234) H 07/09/21 18:34 Lactate Dehydrogenase Cancelled 07/09/21 18:34 Creatine Kinase 81 Units/L (26-192) 07/10/21 00:20 CK-MB (CK-2) 6.6 ng/mL (0-4.0) H* 07/10/21 00:20 CK/CKMB % Calc 8.2 % (<4) 07/10/21 00:20 Troponin I High Sens 19.3 ng/L (4.0-60.0) 07/10/21 00:20 Total Protein 5.9 g/dL (6.4-8.2) L 07/14/21 04:41 Albumin 2.3 g/dL (3.4-5.0) L 07/14/21 04:41 Globulin 3.6 g/dL (2.5-4.5) 07/14/21 04:41 Albumin/Globulin Ratio 0.6 Ratio (1.1-2.1) L 07/14/21 04:41 CA 19-9 Antigen 69 U/mL (<=35) H 07/09/21 18:34 CA 125 Antigen 54 U/mL (<=38) H 07/09/21 18:34 Specimen Type Catherized urine 07/11/21 10:10 Urine Color Pale yellow (YELLOW) 07/11/21 10:10 Urine Appearance Clear (CLEAR) 07/11/21 10:10 Urine pH 7.0 (5.0 - 8.0) 07/11/21 10:10 Ur Specific [place] 1.005 (1.000-1.030) 07/11/21 10:10 Urine Protein Negative (NEGATIVE) 07/11/21 10:10 Urine Glucose (UA) Negative (NEGATIVE) 07/11/21 10:10 Urine Ketones Negative (NEGATIVE) 07/11/21 10:10 Urine Blood Negative (NEGATIVE) 07/11/21 10:10 Urine Nitrite Negative (NEGATIVE) 07/11/21 10:10 Urine Bilirubin Negative (NEGATIVE) 07/11/21 10:10 Urine Urobilinogen Normal (NORMAL) 07/11/21 10:10 Ur Leukocyte Esterase Negative (NEGATIVE) 07/11/21 10:10 Stool Description 60 g. unformed/brown 07/12/21 21:55 Stl Occult Blood (IFOB) Positive (NEGATIVE) A 07/12/21 21:55 Plan (1) Acute exacerbation of chronic obstructive pulmonary disease: Status: Acute (2) Anxiety: Status: Acute (3) Lung mass: Status: Acute (4) Constipation due to opioid therapy: Status: Chronic Plan: MOM, colace, Lactulose added (5) Malignant hypertension: Status: Chronic Plan: See med changes (6) Rheumatoid arthritis: Status: Chronic Qualifiers: Rheumatoid arthritis location: multiple sites Rheumatoid factor presence: unspecified presence Qualified Code(s): M06.9 - Rheumatoid arthritis, unspecified Plan: Pain control (7) Hypoxia: Status: Acute (8) Respiratory distress: Status: Acute Plan: As above (9) Weakness: Status: Chronic (10) Emphysema lung: Status: Chronic Qualifiers: Emphysema type: unspecified Qualified Code(s): J43.9 - Emphysema, unspecified (11) History of smoking: Status: Chronic (12) Chronic pain syndrome: Status: Chronic Plan: Pain control
[2021-07-14] MEDS: NORCO 7.5/325 MG TAB PO PRN ×2 (14:20→21:01)
[2021-07-14] MEDS: ELAVIL PO SCH (21:00)
[2021-07-15] MEDS: XOPENEX 1.25 MG/3 ML NEBULE NEB SCH ×4 (00:14→18:32)
[2021-07-15] MEDS: MUCOMYST 20% 200 MG/ML NEB SCH ×5 (00:14→18:32)
[2021-07-15] MEDS: NORCO 7.5/325 MG TAB PO PRN ×3 (03:44→23:21)
[2021-07-15] MEDS: XANAX PO SCH ×3 (05:45→21:51)
[2021-07-15 06:30] LABS: BASOPHILS % (AUTO) 0.2 % (0.2-1.0); EOSINOPHILS # (AUTO) 0.2 x10^3/uL (0.0-0.2); EOSINOPHILS % (AUTO) 1.8 % (0.9-2.9); HEMATOCRIT 34.3 % (36.0-47.0); HEMOGLOBIN 11.6 g/dL (12.0-16.0); LYMPHOCYTES # (AUTO) 1.6 X10^3/uL (1.3-2.9); LYMPHOCYTES % (AUTO) 14.8 % (21.0-51.0); MEAN CORPUSCULAR HEMOGLOBIN 31.1 pg (27.0-34.0); MEAN CORPUSCULAR HGB CONC 33.9 g/dL (33.0-35.0); MEAN CORPUSCULAR VOLUME 91.8 fL (80.0-100.0); MEAN PLATELET VOLUME 7.1 fL (7.4-11.0); MONOCYTES % (AUTO) 9.4 % (0.0-13.0); NEUTROPHILS # (AUTO) 8.1 x10^3/uL (2.2-4.8); NEUTROPHILS % (AUTO) 73.8 % (42.0-75.0); RED BLOOD COUNT 3.74 X10^6/uL (3.5-5.4); RED CELL DISTRIBUTION WIDTH 13.9 % (11.6-16.5); WHITE BLOOD COUNT 10.9 X10^3/uL (3.6-10.0)
[2021-07-15 06:45] LABS: ALANINE AMINOTRANSFERASE 21 Units/L (12-78); ALBUMIN 2.2 g/dL (3.4-5.0); ALKALINE PHOSPHATASE 67 Units/L (46-116); ASPARTATE AMINO TRANSFERASE 17 Units/L (15-37); BLOOD UREA NITROGEN 13 mg/dL (7-18); CALCIUM 8.9 mg/dL (8.5-10.1); CARBON DIOXIDE 35.3 mmol/L (21-32); CHLORIDE 97 mmol/L (98-107); COR CA(FOR HYPOALB) 10.3 mg/dL (8.5-10.1); COR NA(FOR HYPERGLY) 138 mmol/L (136-145); CREATININE 0.85 mg/dL (0.55-1.02); SODIUM 137 mmol/L (136-145); TOTAL PROTEIN 5.9 g/dL (6.4-8.2); eGFR NON BLACK RACES > 60 (>60)
[2021-07-15] MEDS: LOVENOX INJ 40 MG SYR SC SCH (09:09)
[2021-07-15] MEDS: SOLU-Medrol 40 MG VIAL IVP SCH (09:10)
[2021-07-15] MEDS: MONOKET or IMDUR PO SCH ×2 (09:10→21:53)
[2021-07-15] MEDS: ZESTRIL TAB 10 MG PO SCH ×2 (09:11→21:54)
[2021-07-15] MEDS: ROCEPHIN VIAL 1 GRAM 1 G in NS 100 ML IV 100 ML IV SCH (09:11)
[2021-07-15] MEDS: CHRONULAC PO SCH (09:12)
[2021-07-15] MEDS: LASIX PO SCH (09:12)
[2021-07-15] MEDS: TENORMIN PO SCH (09:12)
[2021-07-15] MEDS: MILK OF MAGNESIA PO SCH ×2 (09:12→21:55)
[2021-07-15] MEDS: COLACE CAP 100 MG PO SCH ×2 (09:12→21:51)
[2021-07-15] MEDS: BUSPAR PO SCH ×2 (09:12→21:57)
[2021-07-15] MEDS: PROTONIX INJ 40 MG VIAL IVP SCH ×2 (09:13→21:54)
[2021-07-15] MEDS: ROBITUSSIN DM PO SCH ×4 (09:13→21:53)
[2021-07-15] MEDS: BROVANA IN SCH ×2 (09:22→20:29)
[2021-07-15] MEDS: PULMICORT NEB TX 0.5 MG NEB SCH ×2 (09:22→20:30)
--- NOTE | 2021-07-15 11:40 | PCM.PROG ---
Progress Note Progress Note for Day of Date of Exam: 07/15/21 Subjective Subjective: Patient seen at bedside, no events overnight. She has not been eating much, small bites as tolerated. She did drink some Boost yesterday. She has been admitted for COPD exacerbation. She is currently on 2L NC. Patient's CT-chest showed a questionable mass/opacity that could be concerning for malignancy. Family has decided they would not like to proceed with further testing regarding this questionable mass. Family has decided on discharging home with hospice on Friday. Labs reviewed Sputum: Gram (-) rods Plan: continue current care, taper solumedrol and continue IV Rocephin. Continue nebs prn. Encouraged PO intake. Wean O2 as tolerated. Continue pain control. Plan to go home with hospice on Friday. Monitor AM labs/imaging. Past Medical Family Social History Past Med/Fam/Surg Hx: No changes since H&P Allergies: Allergies codeine Allergy (Intermediate, Verified 10/18/20 07:18) disorientation Review of Systems ROS: No change since H&P Vital Signs and I&O's Vital Signs: Temperature 99.0 F Pulse Rate [Left] 90 Pulse Rate 90 Respiratory Rate 20 Blood Pressure [Left Arm] 130/65 Blood Pressure 173/81 O2 Sat by Pulse Oximetry 100 Intake and Output: Intake & Output 07/12/21 07/13/21 07/14/21 07/15/21 23:59 23:59 23:59 23:59 Intake Total 2554 / 2554 1765 / 1765 3108 / 3108 606 / 606 Output Total 1750 / 1750 1720 / 1720 2210 / 2210 280 / 280 Balance 804 / 804 45 / 45 898 / 898 326 / 326 Physical Exam Oriented: Normal Eyes: Normal Ear: Normal Nose: Normal Throat: Normal Respiratory: Generalized and Diminished Cardiovascular: Normal; negative Edema : Normal (Johnson for comfort) Auscultation: Bowel Sounds: Normal Tenderness: Normal Skin: Decreased Turgur Musculoskeletal: Right, Left, Swelling (DIFFUSE SMALL JOINT SWELLING, HAND AND TOE CHRONIC DEFORMITY FOR RA), Tender, Deformity (Contractures of hands bilaterally due to RA.) and Motor Deficit Psychiatric: Normal Mood Description: Calm Affect: Normal Speech Pattern: Clear and Appropriate Laboratory and Diagnostics Result Diagrams: 07/15/21 06:02 07/15/21 06:02 Labs: 04/07/22 12:14 Sputum - Expectorated Sputum Sputum Culture - Preliminary 07/12/21 12:14 Sputum - Expectorated Sputum - Final 07/09/21 16:20 Sputum - Expectorated Sputum Sputum Culture - Final Enterobacter Aerogenes 07/09/21 16:20 Sputum - Expectorated Sputum - Final Laboratory WBC 10.9 X10^3/uL (3.6-10.0) H 07/15/21 06:02 RBC 3.74 X10^6/uL (3.5-5.4) 07/15/21 06:02 Hgb 11.6 g/dL (12.0-16.0) L 07/15/21 06:02 Hct 34.3 % (36.0-47.0) L 07/15/21 06:02 MCV 91.8 fL (80.0-100.0) 07/15/21 06:02 MCH 31.1 pg (27.0-34.0) 07/15/21 06:02 MCHC 33.9 g/dL (33.0-35.0) 07/15/21 06:02 RDW 13.9 % (11.6-16.5) 07/15/21 06:02 Plt Count 352 X10^3/uL (150.0-450.0) 07/15/21 06:02 Plt Count Comment Adequate (ADEQUATE) 07/14/21 04:41 MPV 7.1 fL (7.4-11.0) L 07/15/21 06:02 Neut % (Auto) 73.8 % (42.0-75.0) 07/15/21 06:02 Lymph % (Auto) 14.8 % (21.0-51.0) L 07/15/21 06:02 [place] % (Auto) 9.4 % (0.0-13.0) 07/15/21 06:02 Eos % (Auto) 1.8 % (0.9-2.9) 07/15/21 06:02 Baso % (Auto) 0.2 % (0.2-1.0) 07/15/21 06:02 Neut # (Auto) 8.1 x10^3/uL (2.2-4.8) H 07/15/21 06:02 Lymph # (Auto) 1.6 X10^3/uL (1.3-2.9) 07/15/21 06:02 [place] # (Auto) 1.0 x10^3/uL (0.3-0.8) H 07/15/21 06:02 Eos # (Auto) 0.2 x10^3/uL (0.0-0.2) 07/15/21 06:02 Baso # (Auto) 0.0 X10^3/uL (0.0-0.1) 07/15/21 06:02 Absolute Nucleated RBC 0.0 /100WBC 07/15/21 06:02 Total Counted 100 07/14/21 04:41 Neutrophils % (Manual) 94 % (39-76) H 07/14/21 04:41 Lymphocytes % (Manual) 4 % (13-43) L 07/14/21 04:41 Monocytes % (Manual) 2 % (4-9) L 07/14/21 04:41 Plt Morphology Comment Normal (NORMAL) 07/14/21 04:41 RBC Morphology Normal (NORMAL) 07/14/21 04:41 D-Dimer 19.71 ug/ml (0.0-0.57) H* 07/11/21 09:12 Sample Site Lrad 07/13/21 05:44 ABG pH 7.460 (7.35-7.45) H 07/13/21 05:44 ABG pCO2 63.0 mmHg (35.0-45.0) H* 07/13/21 05:44 ABG pO2 120.0 mmHg (80.0-100.0) H 07/13/21 05:44 ABG HCO3 44.8 mmol/L (22-26) H* 07/13/21 05:44 ABG O2 Saturation 99.0 % (90-100) 07/13/21 05:44 ABG Base Excess 17.8 mmol/L (-2.0-2.0) H 07/13/21 05:44 Jarred Test Pos 07/13/21 05:44 A-a Gradient 29.0 mmHg 07/13/21 05:44 FiO2 32.0 07/13/21 05:44 Blood Gas Comments katja well ms 07/13/21 05:44 Sodium 137 mmol/L (136-145) 07/15/21 06:02 Corrected Sodium 138 mmol/L (136-145) 07/15/21 06:02 Potassium 3.9 mmol/L (3.5-5.1) 07/15/21 06:02 Chloride 97 mmol/L (98-107) L 07/15/21 06:02 Carbon Dioxide 35.3 mmol/L (21-32) H 07/15/21 06:02 BUN 13 mg/dL (7-18) 07/15/21 06:02 Creatinine 0.85 mg/dL (0.55-1.02) 07/15/21 06:02 Est GFR (MDRD) Af Amer > 60 (>60) 07/15/21 06:02 Est GFR (MDRD) Non-Af > 60 (>60) 07/15/21 06:02 Glucose 160 mg/dL (65-99) H 07/15/21 06:02 Calcium 8.9 mg/dL (8.5-10.1) 07/15/21 06:02 Corrected Calcium 10.3 mg/dL (8.5-10.1) H 07/15/21 06:02 Magnesium 2.3 mg/dL (1.7-2.9) 07/12/21 04:50 Total Bilirubin 0.30 mg/dL (0.2-1.0) 07/15/21 06:02 AST 17 Units/L (15-37) 07/15/21 06:02 ALT 21 Units/L (12-78) 07/15/21 06:02 Alkaline Phosphatase 67 Units/L (46-116) 07/15/21 06:02 Lactate Dehydrogenase 316 Units/L (81-234) H 07/09/21 18:34 Lactate Dehydrogenase Cancelled 07/09/21 18:34 Creatine Kinase 81 Units/L (26-192) 07/10/21 00:20 CK-MB (CK-2) 6.6 ng/mL (0-4.0) H* 07/10/21 00:20 CK/CKMB % Calc 8.2 % (<4) 07/10/21 00:20 Troponin I High Sens 19.3 ng/L (4.0-60.0) 07/10/21 00:20 Total Protein 5.9 g/dL (6.4-8.2) L 07/15/21 06:02 Albumin 2.2 g/dL (3.4-5.0) L 07/15/21 06:02 Globulin 3.7 g/dL (2.5-4.5) 07/15/21 06:02 Albumin/Globulin Ratio 0.6 Ratio (1.1-2.1) L 07/15/21 06:02 CA 19-9 Antigen 69 U/mL (<=35) H 07/09/21 18:34 CA 125 Antigen 54 U/mL (<=38) H 07/09/21 18:34 Specimen Type Catherized urine 07/11/21 10:10 Urine Color Pale yellow (YELLOW) 07/11/21 10:10 Urine Appearance Clear (CLEAR) 07/11/21 10:10 Urine pH 7.0 (5.0 - 8.0) 07/11/21 10:10 Ur Specific [place] 1.005 (1.000-1.030) 07/11/21 10:10 Urine Protein Negative (NEGATIVE) 07/11/21 10:10 Urine Glucose (UA) Negative (NEGATIVE) 07/11/21 10:10 Urine Ketones Negative (NEGATIVE) 07/11/21 10:10 Urine Blood Negative (NEGATIVE) 07/11/21 10:10 Urine Nitrite Negative (NEGATIVE) 07/11/21 10:10 Urine Bilirubin Negative (NEGATIVE) 07/11/21 10:10 Urine Urobilinogen Normal (NORMAL) 07/11/21 10:10 Ur Leukocyte Esterase Negative (NEGATIVE) 07/11/21 10:10 Stool Description 60 g. unformed/brown 07/12/21 21:55 Stl Occult Blood (IFOB) Positive (NEGATIVE) A 07/12/21 21:55 Plan (1) Acute exacerbation of chronic obstructive pulmonary disease: Status: Acute (2) Anxiety: Status: Acute (3) Lung mass: Status: Acute (4) Constipation due to opioid therapy: Status: Chronic (5) Malignant hypertension: Status: Chronic (6) Rheumatoid arthritis: Status: Chronic Qualifiers: Rheumatoid arthritis location: multiple sites Rheumatoid factor presence: unspecified presence Qualified Code(s): M06.9 - Rheumatoid arthritis, unspecified Plan: Pain control (7) Hypoxia: Status: Acute (8) Respiratory distress: Status: Acute (9) Weakness: Status: Chronic (10) Emphysema lung: Status: Chronic Qualifiers: Emphysema type: unspecified Qualified Code(s): J43.9 - Emphysema, unspecified (11) History of smoking: Status: Chronic (12) Chronic pain syndrome: Status: Chronic
[2021-07-15] MEDS ORDERED: BUTT CREAM (COMPOUND) ONE (14:10)
[2021-07-15] MEDS ORDERED: BUTT CREAM (COMPOUND) TOP PRN (14:37)
[2021-07-15] MEDS: ELAVIL PO SCH (21:54)
[2021-07-16] MEDS: NS 1,000 ML IV 1,000 ML IV SCH ×3 (00:24→09:29)
[2021-07-16] MEDS: XOPENEX 1.25 MG/3 ML NEBULE NEB SCH (00:27)
[2021-07-16] MEDS: MUCOMYST 20% 200 MG/ML NEB SCH (00:27)
[2021-07-16] MEDS: XANAX PO SCH ×2 (06:11→13:10)
[2021-07-16 07:10] LABS: BASOPHILS % (AUTO) 0.1 % (0.2-1.0); EOSINOPHILS # (AUTO) 0.2 x10^3/uL (0.0-0.2); EOSINOPHILS % (AUTO) 1.8 % (0.9-2.9); HEMATOCRIT 33.5 % (36.0-47.0); HEMOGLOBIN 11.1 g/dL (12.0-16.0); LYMPHOCYTES # (AUTO) 1.3 X10^3/uL (1.3-2.9); LYMPHOCYTES % (AUTO) 13.6 % (21.0-51.0); MEAN CORPUSCULAR HEMOGLOBIN 30.2 pg (27.0-34.0); MEAN CORPUSCULAR HGB CONC 33.2 g/dL (33.0-35.0); MEAN CORPUSCULAR VOLUME 90.9 fL (80.0-100.0); MEAN PLATELET VOLUME 7.1 fL (7.4-11.0); MONOCYTES # (AUTO) 1.1 x10^3/uL (0.3-0.8); MONOCYTES % (AUTO) 10.7 % (0.0-13.0); NEUTROPHILS # (AUTO) 7.3 x10^3/uL (2.2-4.8); NEUTROPHILS % (AUTO) 73.8 % (42.0-75.0); RED BLOOD COUNT 3.69 X10^6/uL (3.5-5.4); RED CELL DISTRIBUTION WIDTH 13.7 % (11.6-16.5); WHITE BLOOD COUNT 9.9 X10^3/uL (3.6-10.0)
[2021-07-16 07:42] LABS: BAND NEUTROPHILS % 4 % (0-10); BLOOD UREA NITROGEN 15 mg/dL (7-18); CALCIUM 8.8 mg/dL (8.5-10.1); CARBON DIOXIDE 37.7 mmol/L (21-32); CHLORIDE 99 mmol/L (98-107); CREATININE 0.69 mg/dL (0.55-1.02); SODIUM 138 mmol/L (136-145); eGFR NON BLACK RACES > 60 (>60)
[2021-07-16 07:43] LABS: PLATELET MORPHOLOGY COMMENT NORMAL (NORMAL)
[2021-07-16] MEDS: PULMICORT NEB TX 0.5 MG NEB SCH (08:28)
[2021-07-16] MEDS: BROVANA IN SCH (08:28)
[2021-07-16] MEDS ORDERED: SOLU-Medrol 40 MG VIAL IVP SCH (09:00)
[2021-07-16] MEDS: ZESTRIL TAB 10 MG PO SCH (09:39)
[2021-07-16] MEDS: LASIX PO SCH (09:41)
[2021-07-16] MEDS: MONOKET or IMDUR PO SCH (09:41)
[2021-07-16] MEDS: ROBITUSSIN DM PO SCH ×2 (09:42→13:10)
[2021-07-16] MEDS: COLACE CAP 100 MG PO SCH (09:42)
[2021-07-16] MEDS: PROTONIX INJ 40 MG VIAL IVP SCH (09:43)
[2021-07-16] MEDS: MILK OF MAGNESIA PO SCH (09:44)
[2021-07-16] MEDS: LOVENOX INJ 40 MG SYR SC SCH (09:45)
[2021-07-16] MEDS: ROCEPHIN VIAL 1 GRAM 1 G in NS 100 ML IV 100 ML IV SCH (09:45)
[2021-07-16] MEDS: BUSPAR PO SCH (09:47)
[2021-07-16] MEDS: CHRONULAC PO SCH (09:48)
[2021-07-16] MEDS: TENORMIN PO SCH (09:48)
[2021-07-16 12:09] VITALS: BP 123/68
== END 2021-07-16 14:15 | disposition hospice, home (50) | DRG 190 ==
LOC: ICU → OBSVTOIN 12:10 → MED/SURG 07-12 15:43
PROVIDERS: ADMIT Internal Medicine; ATTEND Internal Medicine